=== PATIENT | female | born 1965 | race Caucasian/White ===

== ENCOUNTER → 2017-07-24 18:53 | Outpatient (CLI) | payer MEDICAID, SELFPAY ==
[2017-07-28 14:12] LABS: HPV Reflexed? NOT INDICATED
== END ==
PROVIDERS: Visit Provider Obstetrics & Gynecology
DX: Z12.4 Encounter for screening for malignant neoplasm of cervix (principal)
CPT/HCPCS: 88175; G0145

== ENCOUNTER → 2017-07-27 14:27 | Outpatient (CLI) | payer MEDICAID, SELFPAY ==
[2017-07-27 16:09] LABS: Anion Gap 8 (5-15); BUN 15 mg/dL (7-18); BUN/Creat Ratio 24.4 RATIO (10-20); Chloride 104 mmol/L (98-107); Cholesterol 186 mg/dL (200); Creatinine, Serum 0.62 mg/dL (0.55-1.02); EST Glomerular Filtration Rate 108 mL/min (>60); Est Glom Filt Rate - Afr Amer 130 mL/min (>60); Glucose 91 mg/dL (74-106); High Density Lipoprotein 60 mg/dL; Sodium Level 140 mmol/L (136-145); T4 Total, Thyroxin 14.9 ug/dL (4.8-13.9); Triglycerides 125 mg/dL; Very Low Density Lipoprotein 25 mg/dL (5-40)
== END ==
PROVIDERS: Family Provider Family Medicine; PCP Family Medicine; Visit Provider Family Medicine
DX: I10 Essential (primary) hypertension (principal); E03.9 Hypothyroidism, unspecified
CPT/HCPCS: 36415; 80048; 80061; 84436; 84443

== ENCOUNTER → 2017-09-17 12:58 | Outpatient (CLI) | payer MEDICAID, SELFPAY ==
--- NOTE | 2017-09-17 | EMB_PTH ---
PATIENT: TONEY RIGGINS LOC: [facility] U#:[id number] AGE/SX: 59/F ROOM: RE09/17/[address]: Dr. Azeem Dangelo MD : 1965 BED: DIS: SPEC #: [id number] RECD: 09/17/17 15:03 STATUS: STORMY DINA #: [id number] JACLYN: 09/17/17 00:[address]: Azeme Dangelo DEPT: SURGICAL PATHOLOGY RECD BY: Edinson Dorsey Tissues: Endometrium, NOS Procedures: Surgery Specimen Level IV HEADER OPERATION: Endometrial biopsy PRE-OP DIAGNOSIS: Postmenopausal bleeding TISSUE SUBMITTED: Endometrial biopsy MICROSCOPIC DIAGNOSIS Endometrium, biopsy: Secretory endometrium with glandular and stromal breakdown. AM:laura 09/18/17 MICROSCOPIC DESCRIPTION Slides are reviewed. GROSS DESCRIPTION Received in fixative is one container labeled with the patient's name and designated endometrial biopsy. The specimen consists of multiple irregular and elongated fragments of red-martinez soft tissue that in aggregate measure 2.2 x 2 x 0.2 cm. The specimen is totally submitted in one cassette. / AM:laura 09/17/17 TC:5 CPT: 08185
== END ==
PROVIDERS: Visit Provider Obstetrics & Gynecology
DX: N95.0 Postmenopausal bleeding (principal)
CPT/HCPCS: 88305

== ENCOUNTER → 2017-09-23 14:47 | Outpatient (CLI) | payer MEDICAID, SELFPAY ==
[2017-09-23 16:32] LABS: Follicle Stimulating Hormone 38.7 mIU/mL
== END ==
PROVIDERS: Visit Provider Obstetrics & Gynecology
DX: N93.9 Abnormal uterine and vaginal bleeding, unspecified (principal)
CPT/HCPCS: 83001

== ENCOUNTER → 2018-06-09 13:17 | Outpatient (CLI) | payer MEDICAID, SELFPAY ==
--- NOTE | 2018-06-09 13:23 | CT_ITS ---
STUDY: LOW DOSE CT LUNG CANCER SCREENING REASON FOR EXAM: Female, 53 years old. LUNG SCREEN, TOBACCO USE OFF/ON X 5 YEARS, 1PPD RADIATION DOSAGE (If Supplied By Facility): CTDIvol = ( 4.02 ) mGy, DLP = ( 133.41 ) mGycm TECHNIQUE: No contrast was administered. Low dose technique was utilized (average mAS-38 and kVp 120). 1.25 mm axial source images with a slice interval of 1.25-mm were reconstructed in lung windows. 2.5 mm axial source images with a slice interval of 2.5-mm were reconstructed in lung windows. 5.0 mm axial source images with a slice interval of 5.0-mm were reconstructed in soft tissue windows. Nodule measured using lung windows on PACS and/or independent workstation with automated measurement of minimum and maximum diameter. Nodule measurement reported as average diameter rounded to the nearest whole number. Growth is defined as an increase ins size of greater than 1.5 mm. COMPARISON: None. NODULES: There is an emphysematous bulla at the lateral aspect of the lingula measures 4.5 cm. There is no demonstrated pleural abnormality. Normal heart and pericardium. Normal mediastinum. Normal hilar regions. Normal unenhanced pulmonary arteries. Normal aorta arch and descending thoracic aorta. There are multi-level degenerative changes of the thoracic spine. There is no demonstrated abnormality of the visualized upper abdomen. CT/Low Dose CT Lung Screening IMPRESSION: Lung-RADS category 2. Benign findings. Recommendation: Routine screening CT scan in one year. IMPORTANT NOTES FOR USE: ACR Lung-RADS Version 1.0 Assessment Categories Release Date: September 19, 2013 Category: Coded 0-4 bases on nodule(s) with highest degree of suspicion. Negative screen is defined as categories 1 and 2; a positive screen is defined as categories 3 and 4. Category 3 and 4A nodules that are unchanged on interval CT should be coded as category 2, and individuals returned to screening in 12 months. Category 4X: Category 3 or 4 nodules with additional imaging findings that increase the suspicion of lung cancer, such as spiculation, GGN that doubles in size in 1 year, enlarged lymph notes, etc. Category Modifiers: S (significant finding unrelated to lung cancer) and C (prior history of treated lung cancer) may be added to the 0-4 Lung-RADS Electronically Signed: Dallas Meade MD at 3:40 EST Tel , Service support ,
--- OUTSIDE RECORDS SUMMARY | 2018-08-14 09:50 | XMS RPT_ITS ---
:1965 Author Organization OH[facility] Care Team Providers Name Role Phone Luciano Cavazos Attending Unavailable Luciano Cavazos Referring Unavailable Reny Damian Primary Care Unavailable Azeem Dangelo Attending Unavailable Azeem Dangelo Referring Unavailable Jolliff, Reny Attending Unavailable Jolliff, Reny Primary Care Unavailable Azeem Dangelo Attending Unavailable Azeem Dangeol Attending Unavailable YAW RICHARDSON DO Attending Unavailable PHYSICIAN, NOT RECORDED Primary Care Unavailable Emelina Vargas Attending Unavailable Gabo Diaz Attending Unavailable Jolliff, Reny S Primary Care Unavailable Emelina Vargas Attending Unavailable Jolliff, Reny S Primary Care Unavailable Emelina Vargas Attending Unavailable No Family Physician given Primary Care Unavailable Gabo Diaz Attending Unavailable PROBLEMS PROBLEMS DATE TYPE CONDITION / ATTENDING STATUS SOURCE CODE 08/25/2017 Admitting Unknown / Alicia, Active [facility] Medical diagnosis UNK(Unknown) Emelina Ad[facility] Repository 07/25/2017 Unknown Z12.4 - Azeem Dangelo Active Abelardo Encounter for Community screening for Hospital malignant Repository neoplasm of cervix / Z12.4(ICD-10) PROCEDURES PROCEDURES No Procedure Records FoundRESULTS RESULTS WOUND Observed: 06/14/2018 Status: F Source: [place] CULTURE/STAIN 11:40 AM [facility] REPOSITORY Sp. Request/Comment: - Swab Smear Result - Rare Gram positive cocci --> ABNORMAL ALERT Rare Polymorphonuclear leukocytes Culture Result - Moderate Staphylococcus aureus --> ABNORMAL ALERT ORGANISM: Staphylococcus aureus METHOD: Minimum inhibitory concentration(Vitek) Antibiotic Interp ROSLYN Status Erythromycin RESISTANT >=8 F Clindamycin SUSCEPTIBLE 0.25 F Testing for inducible clindamycin resistance was performed. Tetracycline SUSCEPTIBLE <=1 F Vancomycin SUSCEPTIBLE 1 F Oxacillin SUSCEPTIBLE 0.5 F Oxacillin susceptible staphylococci are susceptible to other penicillinase stable penicillins, beta lactam/beta lactamase inhibitor combinations, anti staphyloccal cephems, and carbapenems. Trimeth sulfameth SUSCEPTIBLE <=10 F Gentamicin SUSCEPTIBLE <=0.5 F Rifampin SUSCEPTIBLE <=0.5 F Rifampin should not be used alone for antimicrobial therapy. Doxycycline SUSCEPTIBLE <=0.5 F Performed By: #### WCUL #### [facility] [address] [place], [place] [address] PROGRESS Observed: 06/14/2018 Status: COMPLETED Source: [place] 11:20 AM [facility] REPOSITORY HNO ID: [id number] Author: Katarina Coronado) Jorge Service: (none) Author Type: Nurse Practitioner Type: Progress Notes Filed: 06/14/2018 11:38 AM Note Text: Subjective The history is provided by the patient. No foreign language professor was used. JEREMY Riggins is a 53 year old female who presents today for CC of rash The patients reports no new exposures, no recent contact with unusual or new material, no recent change in detergents, soap, or shampoo and no other family members with the same rash. The rash is discribed as Erythema, pustules Past treatments No Does the patient have a personal history of: Seasonal allergies: no Recent travel: no Recent infections: no Beginning a new medication: no Symptoms are triggered by: nothing Other symtoms include: none BP 140/74 Pulse 86 Temp 36.9 ?C (98.5 ?F) (Tympanic) Resp 16 Wt 111.2 kg (245 lb 3.2 oz) BMI 51.25 kg/m? Social History Marital status: Single Spouse name: Years of education: Number of children: Social History Main Topics Smoking status: Former Smoker Packs/day: 0.00 Years: 0.00 Smokeless tobacco: Never Used No past medical history on file. I have confirmed and edited as necessary, the [facility] Review of Systems Constitutional: Negative for chills and fever. Musculoskeletal: Negative for myalgias. Skin: Positive for rash. Negative for itching. Objective Physical Exam Constitutional: She is oriented to person, place, and time and well-developed, well-nourished, and in no distress. Neurological: She is alert and oriented to person, place, and time. Skin: Skin is warm and dry. Rash noted. Rash is papular and pustular. There is erythema. Psychiatric: Affect normal. Nursing note and vitals reviewed. ASSESSMENT/PLAN: 1. Rash - ICD9: 782.1, ICD10: R21 Appears to be infected, possible staph, impetigo, MRSA - Keep the area clean and dry -Clean with soap and water . Apply mupirocin ointment 2 - 3 times a day. -Tylenol or Ibuprofen for discomfort -Observe area for signs of infection: redness, warmth, foul odor, drainage or increase in discomfort. Call you primary care physician if this occurs. -Call your primary care physician's office for a follow up appointment. Wound culture done, will notify of findings. - MUPIROCIN 2 % TOPICAL OINTMENT Diagnosis and treatment plan were discussed and questions were answered to the patient's satisfaction. Pt acknowledged understanding of concepts and follow up plan. Specific signs and symptoms that would indicate the need for higher level of care were discussed in detail warranting prompt ER evaluation. Diagnosis and treatment plan were discussed and questions were answered to the patient's satisfaction. Pt acknowledged understanding of concepts and follow up plan. Specific signs and symptoms that would indicate the need for higher level of care were discussed in detail warranting prompt ER evaluation. Katarina Patel APRN.CNP CNOV Observed: 06/14/2018 Status: COMPLETED Source: [place] 11:15 AM [facility] REPOSITORY Office Visit (WSTR) DOTTIE RIGGINS ([id number]) 1965 F Date Time Provider Department 06/14/18 11:15 AM KATARINA PATEL (BASIL) [facility] During your visit today, we recorded the following information about you: Temperature Pulse Respiration Blood pressure 98.5 degrees 86/minute 16/minute 140/74 Weight 111.2 kg Katarina Patel APRN.CNP 06/14/2018 11:38 AM Signed Subjective The history is provided by the patient. No foreign language professor was used. JEREMY Riggins is a 53 year old female who presents today for CC of rash The patients reports no new exposures, no recent contact with unusual or new material, no recent change in detergents, soap, or shampoo and no other family members with the same rash. The rash is discribed as Erythema, pustules Past treatments No Does the patient have a personal history of: Seasonal allergies: no Recent travel: no Recent infections: no Beginning a new medication: no Symptoms are triggered by: nothing Other symtoms include: none BP 140/74 Pulse 86 Temp 36.9 ?C (98.5 ?F) (Tympanic) Resp 16 Wt 111.2 kg (245 lb 3.2 oz) BMI 51.25 kg/m? Social History Marital status: Single Spouse name: Years of education: Number of children: Social History Main Topics Smoking status: Former Smoker Packs/day: 0.00 Years: 0.00 Smokeless tobacco: Never Used No past medical history on file. I have confirmed and edited as necessary, the [facility] Review of Systems Constitutional: Negative for chills and fever. Musculoskeletal: Negative for myalgias. Skin: Positive for rash. Negative for itching. Objective Physical Exam Constitutional: She is oriented to person, place, and time and well-developed, well-nourished, and in no distress. Neurological: She is alert and oriented to person, place, and time. Skin: Skin is warm and dry. Rash noted. Rash is papular and pustular. There is erythema. Psychiatric: Affect normal. Nursing note and vitals reviewed. ASSESSMENT/PLAN: 1. Rash - ICD9: 782.1, ICD10: R21 Appears to be infected, possible staph, impetigo, MRSA - Keep the area clean and dry -Clean with soap and water . Apply mupirocin ointment 2 - 3 times a day. -Tylenol or Ibuprofen for discomfort -Observe area for signs of infection: redness, warmth, foul odor, drainage or increase in discomfort. Call you primary care physician if this occurs. -Call your primary care physician's office for a follow up appointment. Wound culture done, will notify of findings. - MUPIROCIN 2 % TOPICAL OINTMENT Diagnosis and treatment plan were discussed and questions were answered to the patient's satisfaction. Pt acknowledged understanding of concepts and follow up plan. Specific signs and symptoms that would indicate the need for higher level of care were discussed in detail warranting prompt ER evaluation. Diagnosis and treatment plan were discussed and questions were answered to the patient's satisfaction. Pt acknowledged understanding of concepts and follow up plan. Specific signs and symptoms that would indicate the need for higher level of care were discussed in detail warranting prompt ER evaluation. Katarina Patel APRN.BASIL Patel APRN.BASIL 06/14/2018 11:29 AM Signed ASSESSMENT/PLAN: 1. Rash - ICD9: 782.1, ICD10: R21 Appears to be infected - Keep the area clean and dry -Clean with soap and water . Apply mupirocin ointment 2 - 3 times a day. -Tylenol or Ibuprofen for discomfort -Observe area for signs of infection: redness, warmth, foul odor, drainage or increase in discomfort. Call you primary care physician if this occurs. -Call your primary care physician's office for a follow up appointment. - MUPIROCIN 2 % TOPICAL OINTMENT Referring Provider: SELF [200] Allergies As of Date: 06/14/2018 (No Known Allergies) Date Reviewed: 06/14/2018 Reviewed by: Katarina (Cancer Registry CoordinatorJah Patel - Fully Assessed Reason for Visit: rash on right forearm [Other] Cmt: x several days Primary Visit Diagnosis:Rash [R21] Order(s):mupirocin (BACTROBAN) 2 % ointmentApply 1 application to affected area three times daily. Location: right armDisp: 30 gRfl: 0 WOUND CULTURE AND GRAM STAIN [SQWCUL] Order #: [id number] Prescriptions as of 06/14/2018 Sig: LEVOTHYROXINE 175 MCG TABLET Take 175 mcg by mouth once da* LISINOPRIL 10 MG TABLET Take 10 mg by mouth once jennifer* DEXTROAMPHETAMINE-AMPHETAMINE* Take 20 mg by mouth once jennifer* DULOXETINE 60 MG CAPSULE,LESLEE* Take 60 mg by mouth once jennifer* DULOXETINE 30 MG CAPSULE,LESLEE* Take 30 mg by mouth once jennifer* OMEPRAZOLE 20 MG CAPSULE,LESLEE* Take 20 mg by mouth once jennifer* DIAZEPAM 5 MG TABLET Take 5 mg by mouth as needed. OXYCODONE-ACETAMINOPHEN 5 MG-* Take 1 tablet by mouth as nee* MUPIROCIN 2 % TOPICAL OINTMENT Apply 1 application to affect* CARISOPRODOL 350 MG TABLET Take 350 mg by mouth once gloria* Problem List As Of Date: 06/14/2018 (None) Other instructions from your clinician: ASSESSMENT/PLAN: 1. Rash - ICD9: 782.1, ICD10: R21 Appears to be infected - Keep the area clean and dry -Clean with soap and water . Apply mupirocin ointment 2 - 3 times a day. -Tylenol or Ibuprofen for discomfort -Observe area for signs of infection: redness, warmth, foul odor, drainage or increase in discomfort. Call you primary care physician if this occurs. -Call your primary care physician's office for a follow up appointment. - MUPIROCIN 2 % TOPICAL OINTMENT Prescriptions ordered this encounter Disp Refills Start End MUPIROCIN 2 % TOPICAL OINTMENT 30 g 0 06/14/2018 Route: TOPICAL Sig: Apply 1 application to affected area three times daily. Location: right arm Encounter Status:Closed by KATARINA PATEL CNP on 06/14/[address] LUNG Observed: 06/09/2018 Status: F Source: [place] SCREENING 1:23 PM [facility] REPOSITORY [facility] Imaging Services [address] [place] [address] Lung Screening MR#: [id number] Acct: [id number] Name: DOTTIE RIGGINS Rep #: [id number] : 1965 F 53 From: Dallas Meade MD PCP: Reny Damian MD Status: REG CLI Study: Low Dose CT Lung Screening Date of Exam: 06/09/18 Exam# [id number] Ordering Dr: Luciano Cavazos MD STUDY: LOW DOSE CT LUNG CANCER SCREENING REASON FOR EXAM: Female, 53 years old. LUNG SCREEN, TOBACCO USE OFF/ON X 5 YEARS, 1PPD RADIATION DOSAGE (If Supplied By Facility): CTDIvol = ( 4.02 ) mGy, DLP = ( 133.41 ) mGycm TECHNIQUE: No contrast was administered. Low dose technique was utilized (average mAS-38 and kVp 120). 1.25 mm axial source images with a slice interval of 1.25- mm were reconstructed in lung windows. 2.5 mm axial source images with a slice interval of 2.5-mm were reconstructed in lung windows. 5.0 mm axial source images with a slice interval of 5.0-mm were reconstructed in soft tissue windows. Nodule measured using lung windows on PACS and/or independent workstation with automated measurement of minimum and maximum diameter. Nodule measurement reported as average diameter rounded to the nearest whole number. Growth is defined as an increase ins size of greater than 1.5 mm. COMPARISON: None. NODULES: There is an emphysematous bulla at the lateral aspect of the lingula measures 4.5 cm. There is no demonstrated pleural abnormality. Normal heart and pericardium. Normal mediastinum. Normal hilar regions. Normal unenhanced pulmonary arteries. Normal aorta arch and descending thoracic aorta. There are multi-level degenerative changes of the thoracic spine. There is no demonstrated abnormality of the visualized upper abdomen. CT/Low Dose CT Lung Screening IMPRESSION: Lung-RADS category 2. Benign findings. Recommendation: Routine screening CT scan in one year. IMPORTANT NOTES FOR USE: ACR Lung-RADS Version 1.0 Assessment Categories Release Date: September 19, 2013 Category: Coded 0-4 bases on nodule(s) with highest degree of suspicion. Negative screen is defined as categories 1 and 2; a positive screen is defined as categories 3 and 4. Category 3 and 4A nodules that are unchanged on interval CT should be coded as category 2, and individuals returned to screening in 12 months. Category 4X: Category 3 or 4 nodules with additional imaging findings that increase the suspicion of lung cancer, such as spiculation, GGN that doubles in size in 1 year, enlarged lymph notes, etc. Category Modifiers: S (significant finding unrelated to lung cancer) and C (prior history of treated lung cancer) may be added to the 0-4 Lung-RADS Electronically Signed: Dallas Meade MD at 3:40 EST Tel , Service support , CC: Reny Damian MD; Luciano Cavazos MD Rod Drawer: Signed TOXASSURE COMPR Collected: 04/26/2018 Status: F Source: [facility] 6:01 AM [facility] REPOSITORY TYPE CODE TESTS RESULT OUT OF RANGE REFERENCE UNITS LAB L600.41786 () Normal TOXASSURE COMPR FINAL Result Comment: TOXASSURE COMP DRUG ANALYSIS,UR 6-Acetylmorphine,ToxAssure Add CREATININE,URINE Test Result Flag Units Drug Present Desmethyldiazepam 232 ng/mg creat Oxazepam 261 ng/mg creat Temazepam 295 ng/mg creat Desmethyldiazepam, oxazepam, and temazepam are benzodiazepine drugs, but may also be present as common metabolites of other benzodiazepine drugs, including diazepam. Oxycodone 2695 ng/mg creat Oxymorphone 342 ng/mg creat Noroxycodone 1144 ng/mg creat Sources of oxycodone include scheduled prescription medications. Oxymorphone and noroxycodone are expected metabolites of oxycodone. Oxymorphone is also available as a scheduled prescription medication. Duloxetine PRESENT Acetaminophen PRESENT Ibuprofen PRESENT Test Result Flag Units Ref Range Creatinine 59 mg/dL >=20 Declared Medications: Medication list was not provided. For clinical consultation, please call . Performed By: #### L600.17091, L600.56346 #### [facility] [address] [place] [address] # [phone] 6-ACETYLMORPHIN Collected: 04/26/2018 Status: F Source: [facility] 6:01 AM [facility] REPOSITORY TYPE CODE TESTS RESULT OUT OF RANGE REFERENCE UNITS LAB L600.38073 () 6-FERNANDO Normal TOXASSURE NEGATIVE Performed By: #### L600.61756, L600.98615 #### [facility] [address] [place] [address] # [phone] XR HAND MINIMUM 3 Observed: 11/28/2017 Status: F Source: [place] VIEWS RIGHT 10:10 PM [facility] REPOSITORY ORIGINAL XR HAND MINIMUM 3 VIEWS RIGHT CLINICAL STATEMENT: Pain medially in the area of the 4th and 5th metacarpals, fall. COMPARISON: None FINDINGS: No acute fracture or dislocation is identified. The joint spaces are maintained. There is no radiopaque foreign body. IMPRESSION: No acute fracture or dislocation. I have personally reviewed the images of this examination and agree with the resident's findings and interpretation. Interpreted By: Tam Miller MD Preliminary Report By: Karen Elizabeth MD Electronically Signed By: Tam Miller MD Dictated Date: 11/28/2017 10:14:58 PM Prelim Date: 11/28/2017 10:17:29 PM Sign Date: 11/28/2017 10:49:00 PM FOLLICLE STIMULATING Collected: 09/23/2017 Status: F Source: [place] 12:40 PM [facility] REPOSITORY TYPE CODE TESTS RESULT OUT OF RANGE REFERENCE UNITS LAB L3100.5125 mIU/mL Normal FSH 38.7 Result Comment: NORMAL REFERENCE RANGES FEMALE FOLLICULAR 2.3 - 12.6 mIU/mL MID-CYCLE PEAK 5.2 - 17.5 mIU/mL LUTEAL 1.7 - 12.9 mIU/mL POST-MENOPAUSAL ON MHT 5.9 - 72.8 mIU/mL NOT ON MHT 12.7 - 132.2 mlU/mL MALE 0.7 - 10.8 mIU/mL NEW TEST METHOD AND REFERENCE RANGES OCTOBER 13, 2011 Performed By: #### L3100.5125 #### [facility] [address] [place], [address] ENDOMETRIAL BX/CURETTINGS Observed: 09/17/2017 Status: F Source: [place] 12:00 AM [facility] REPOSITORY Patient: DOTTIE RIGGINS : 1965 (52/F) Acct Num: [id number] Phys: Antolin JARAMILLO,[facility] Unit Num: [id number] Loc: LABSPEC Specimen: [id number] Received: 09/17/17 - 1503 Spec Type: ENDOM BX/C TISSUES TISSUES: Endometrium, NOS GROSS DESCRIPTION Received in fixative is one container labeled with the patient's name and designated endometrial biopsy. The specimen consists of multiple irregular and elongated fragments of red-martinez soft tissue that in aggregate measure 2.2 x 2 x 0.2 cm. The specimen is totally submitted in one cassette. / AM: 09/17/17 TC:5 CPT: 74925 HEADER OPERATION: Endometrial biopsy PRE-OP DIAGNOSIS: Postmenopausal bleeding TISSUE SUBMITTED: Endometrial biopsy MICROSCOPIC DESCRIPTION Slides are reviewed. MICROSCOPIC DIAGNOSIS Endometrium, biopsy: Secretory endometrium with glandular and stromal breakdown. AM: 09/18/17 Signed Jacek Feldman 09/18/17 <signature on file> Performed By: #### PEMB #### [facility] [address] [place], [place], [address] PROGRESS Observed: 07/30/2017 Status: COMPLETED Source: [place] 6:36 PM [facility] REPOSITORY HNO ID: [id number] Author: Lizet (Basil) Luis Service: (none) Author Type: Nurse Practitioner Type: Progress Notes Filed: 07/30/2017 7:16 PM Note Text: Subjective HPI Patient is a 52 year old female here today for a month long history of nasal congestion and sinus pressure. States she was feeling better but now feels worse. OTC medications have been taken with little relief. Nothing makes it better or worse. No other concerns at this time. Review of Systems Constitutional: Positive for chills and malaise/fatigue. Negative for fever. HENT: Positive for congestion, ear pain and sore throat. Respiratory: Positive for cough. Negative for sputum production, shortness of breath and wheezing. Cardiovascular: Negative. Gastrointestinal: Negative for nausea and vomiting. Musculoskeletal: Negative for myalgias. Neurological: Positive for headaches (sinus pressure). Endo/Heme/Allergies: Negative for environmental allergies. All other systems reviewed and are negative. No past medical history on file. No past surgical history on file. ALLERGIES Review of patient's allergies indicates no known allergies. MEDICATIONS levothyroxine (SYNTHROID) 175 mcg tablet Take 175 mcg by mouth once daily. lisinopril (ZESTRIL, PRINIVIL) 10 mg tablet Take 10 mg by mouth once daily. dextroamphetamine-amphetamine (ADDERALL) 20 mg tablet Take 20 mg by mouth once daily. DULoxetine (CYMBALTA) 60 mg capsule Take 60 mg by mouth once daily. DULoxetine (CYMBALTA) 30 mg capsule Take 30 mg by mouth once daily. omeprazole (PRILOSEC) 20 mg capsule Take 20 mg by mouth once daily. diazepam (VALIUM) 5 mg tablet Take 5 mg by mouth as needed. oxyCODONE-acetaminophen (PERCOCET) 5-325 mg tablet Take 1 tablet by mouth as needed. carisoprodol (SOMA) 350 mg tablet Take 350 mg by mouth once daily. No family history on file. Social History Substance Use Topics - Smoking status: Former Smoker - Smokeless tobacco: Never Used - Alcohol use Not on file BP 140/70 Pulse 72 Temp 37 ?C (98.6 ?F) (Tympanic) Resp 16 Wt 110 kg (242 lb 9.6 oz) BMI 50.7 kg/m2 Objective Physical Exam Constitutional: She is oriented to person, place, and time and well-developed, well-nourished, and in no distress. Vital signs are normal. No distress. Mildly ill. HENT: Head: Normocephalic and atraumatic. Right Ear: Tympanic membrane, external ear and ear canal normal. Left Ear: Tympanic membrane, external ear and ear canal normal. Nose: Mucosal edema and rhinorrhea present. Right sinus exhibits maxillary sinus tenderness and frontal sinus tenderness. Left sinus exhibits maxillary sinus tenderness and frontal sinus tenderness. Mouth/Throat: Uvula is midline, oropharynx is clear and moist and mucous membranes are normal. No oropharyngeal exudate, posterior oropharyngeal edema or posterior oropharyngeal erythema. Neck: Neck supple. Cardiovascular: Normal rate, regular rhythm and normal heart sounds. Pulmonary/Chest: Effort normal and breath sounds normal. She has no wheezes. She has no rales. Lymphadenopathy: Head (right side): No submental, no submandibular and no tonsillar adenopathy present. Head (left side): No submental, no submandibular and no tonsillar adenopathy present. She has no cervical adenopathy. Submandibular fullness. Neurological: She is alert and oriented to person, place, and time. Skin: Skin is warm and dry. Nursing note and vitals reviewed. ASSESSMENT/PLAN: 1. Acute sinusitis, recurrence not specified, unspecified location - ICD9: 461.9, ICD10: J01.90 - Will begin treatment with as per antibiotic as written, see orders - Diflucan given for antibiotic induced yeast infection - The patient should also be given OTC decongestants prn, OTC cough and cold meds as needed and warm salt water gargles, throat lozenges and/or OTC throat spray as needed for the first 5-7 days of treatment. - Supportive care with plenty of fluids, rest, and analgesia prn. - Follow up in 3-5 days if symptoms persist or worsen. - AMOXICILLIN 875 MG-POTASSIUM CLAVULANATE 125 MG TABLET - FLUCONAZOLE 150 MG TABLET Prescription instructions reviewed with patient as applicable. Patient advised if symptoms do not improve or if symptoms worsen sooner, to contact their primary care physician. Potential red flag symptoms discussed with the patient. Reviewed appropriate action plan to take if red flag symptoms occur. Patient agreeable to treatment plan. Lizet Smith CNP CNOV Observed: 07/30/2017 Status: COMPLETED Source: [place] 6:30 PM [facility] REPOSITORY Office Visit (WSTR) FRESHDOTTIE LINARES ([id number]) 1965 F Date Time Provider Department 07/30/17 6:30 PM LIZET SMITH (BASIL) [facility] During your visit today, we recorded the following information about you: Temperature Pulse Respiration Blood pressure 98.6 degrees 72/minute 16/minute 140/70 Weight 110 kg Lizet Smith CNP 07/30/2017 7:16 PM Signed Subjective HPI Patient is a 52 year old female here today for a month long history of nasal congestion and sinus pressure. States she was feeling better but now feels worse. OTC medications have been taken with little relief. Nothing makes it better or worse. No other concerns at this time. Review of Systems Constitutional: Positive for chills and malaise/fatigue. Negative for fever. HENT: Positive for congestion, ear pain and sore throat. Respiratory: Positive for cough. Negative for sputum production, shortness of breath and wheezing. Cardiovascular: Negative. Gastrointestinal: Negative for nausea and vomiting. Musculoskeletal: Negative for myalgias. Neurological: Positive for headaches (sinus pressure). Endo/Heme/Allergies: Negative for environmental allergies. All other systems reviewed and are negative. No past medical history on file. No past surgical history on file. ALLERGIES Review of patient's allergies indicates no known allergies. MEDICATIONS levothyroxine (SYNTHROID) 175 mcg tablet Take 175 mcg by mouth once daily. lisinopril (ZESTRIL, PRINIVIL) 10 mg tablet Take 10 mg by mouth once daily. dextroamphetamine-amphetamine (ADDERALL) 20 mg tablet Take 20 mg by mouth once daily. DULoxetine (CYMBALTA) 60 mg capsule Take 60 mg by mouth once daily. DULoxetine (CYMBALTA) 30 mg capsule Take 30 mg by mouth once daily. omeprazole (PRILOSEC) 20 mg capsule Take 20 mg by mouth once daily. diazepam (VALIUM) 5 mg tablet Take 5 mg by mouth as needed. oxyCODONE-acetaminophen (PERCOCET) 5-325 mg tablet Take 1 tablet by mouth as needed. carisoprodol (SOMA) 350 mg tablet Take 350 mg by mouth once daily. No family history on file. Social History Substance Use Topics - Smoking status: Former Smoker - Smokeless tobacco: Never Used - Alcohol use Not on file BP 140/70 Pulse 72 Temp 37 ?C (98.6 ?F) (Tympanic) Resp 16 Wt 110 kg (242 lb 9.6 oz) BMI 50.7 kg/m2 Objective Physical Exam Constitutional: She is oriented to person, place, and time and well-developed, well-nourished, and in no distress. Vital signs are normal. No distress. Mildly ill. HENT: Head: Normocephalic and atraumatic. Right Ear: Tympanic membrane, external ear and ear canal normal. Left Ear: Tympanic membrane, external ear and ear canal normal. Nose: Mucosal edema and rhinorrhea present. Right sinus exhibits maxillary sinus tenderness and frontal sinus tenderness. Left sinus exhibits maxillary sinus tenderness and frontal sinus tenderness. Mouth/Throat: Uvula is midline, oropharynx is clear and moist and mucous membranes are normal. No oropharyngeal exudate, posterior oropharyngeal edema or posterior oropharyngeal erythema. Neck: Neck supple. Cardiovascular: Normal rate, regular rhythm and normal heart sounds. Pulmonary/Chest: Effort normal and breath sounds normal. She has no wheezes. She has no rales. Lymphadenopathy: Head (right side): No submental, no submandibular and no tonsillar adenopathy present. Head (left side): No submental, no submandibular and no tonsillar adenopathy present. She has no cervical adenopathy. Submandibular fullness. Neurological: She is alert and oriented to person, place, and time. Skin: Skin is warm and dry. Nursing note and vitals reviewed. ASSESSMENT/PLAN: 1. Acute sinusitis, recurrence not specified, unspecified location - ICD9: 461.9, ICD10: J01.90 - Will begin treatment with as per antibiotic as written, see orders - Diflucan given for antibiotic induced yeast infection - The patient should also be given OTC decongestants prn, OTC cough and cold meds as needed and warm salt water gargles, throat lozenges and/or OTC throat spray as needed for the first 5-7 days of treatment. - Supportive care with plenty of fluids, rest, and analgesia prn. - Follow up in 3-5 days if symptoms persist or worsen. - AMOXICILLIN 875 MG-POTASSIUM CLAVULANATE 125 MG TABLET - FLUCONAZOLE 150 MG TABLET Prescription instructions reviewed with patient as applicable. Patient advised if symptoms do not improve or if symptoms worsen sooner, to contact their primary care physician. Potential red flag symptoms discussed with the patient. Reviewed appropriate action plan to take if red flag symptoms occur. Patient agreeable to treatment plan. BASIL Thomas CNP 07/30/2017 6:41 PM Signed Acute Sinusitis Each of us has four paired cavities (spaces) in our head that are connected to the nose by narrow channels. These cavities, known as sinuses, produce thin mucus that drains out of the channels of the nose. This drainage helps keep the nose clean and free of particles and bacteria. Normally, sinuses are filled with air. But when sinuses become blocked and filled with fluid, bacteria can grow and cause an infection (bacterial sinusitis). Conditions that cause sinus blockage include: ? the common cold ? allergic rhinitis (swelling of the lining of the nose due to allergies) ? nasal polyps (small growths in the lining of the nose), or ? a deviated septum (the wall between the left and right nostril is crooked). Allergies, such as hay fever, can also cause swelling and poor drainage of the sinuses. One confusing factor to consider is that many people with ?sinus headaches? are actually suffering from migraines. In fact, in large clinical studies, up to 90% of people who reported sinus headaches were diagnosed with migraines instead. Migraines can cause headaches in combination with facial pressure over the sinuses, a runny nose, and nasal congestion. If you have symptoms that involve the sinuses, it may be difficult to tell if you have sinusitis, a cold, nasal allergy, or even a migraine. This article will describe the symptoms, diagnosis, and treatment of sinusitis, and how to tell the difference between sinusitis, cold, migraines, and nasal allergy. What is sinusitis? Sinusitis is an inflammation, or swelling, of the tissue lining the sinuses. There are two types of sinusitis: ? Acute bacterial sinusitis: a sudden onset of cold symptoms such as runny nose, stuffy nose, and facial pain that does not go away after 10 days, or symptoms that seem to begin improving but return worse than the initial symptoms. It responds well to antibiotics and decongestants. ? Chronic sinusitis: a condition defined by nasal congestion, drainage, facial pain/pressure, and decreased sense of smell for at least 12 weeks. Who gets sinusitis? Every year, approximately 1 billion Americans have at least one episode of viral sinusitis. About 37 million will develop a bacterial sinusitis. People who have the following conditions have a higher risk of sinusitis: ? Nasal mucus membrane swelling, as from a common cold or allergies ? Blockage of drainage ducts, leading to trapping of mucus ? Structure differences that narrow the drainage ducts ? Conditions that result in an increased risk of infection ? Polyps (growths) In children, common factors in the environment that contribute to sinusitis include allergies, illness from other children at day care or school, and smoke in the environment. In adults, the contributing factors are most frequently viral infections, allergies, and smoking. What are the signs and symptoms of acute sinusitis? The primary symptoms of acute sinusitis include: ? Facial pain/pressure/tenderness ? Nasal stuffiness ? Nasal discharge (thick yellow or green discharge from nose), especially if it is long-lasting. These also may be present with viral illness. ? Loss of smell and taste ? Cough/congestion Additional symptoms may include: ? Fever of 102? or higher ? Ear pain ? Headache ? Bad breath ? Fatigue ? Ache in upper jaw and teeth How is sinusitis diagnosed? To diagnose sinusitis, your doctor will discuss your symptoms and examine your nose for swelling and drainage. Your personal history is most important in diagnosing sinusitis. A physical exam of the ears, nose, and throat is performed to look for signs of obstruction (blockage) or infection. Some patients may have conditions that may need to be referred to a specialist, such as an ear, nose, and throat (ENT) physician. How is sinusitis treated? Acute sinusitis. If you have a simple sinusitis infection, your health care provider may recommend treatment with wkgu-mss-[id number] medications for cold and allergy, nasal saline irrigation, and drinking fluids (as most sinusitis is viral). Use of prescription intranasal steroid sprays might be added to help control symptoms. However, non-prescription drops or sprays should not be used beyond 5 days -- or they may actually increase congestion. If symptoms do not improve after at least 10 days, if the symptoms seem to be getting worse, or if medications for cold or allergy do not improve symptoms, a bacterial infection may be causing the sinusitis. In this case, antibiotics are given for 7 days in adults and 10 days in children. Antibiotics should improve symptoms within 48 hours. Chronic sinusitis. Treating chronic sinusitis begins with controlling the underlying condition, which is most often allergies. Standard treatments include intranasal steroid sprays, topical antihistamine sprays, or antihistamine pills, and leukotriene antagonists such as montelukast. Often you will be encouraged to rinse the nose with saline irrigations. Sometimes medications may be added to these irrigations. If sinusitis is not controlled, the next step is a visit with an Ear, Nose and Throat Specialist. Will I need to make lifestyle changes? If you have indoor allergies, avoiding triggers -- such as animal dander and dust mites ? is recommended in addition to medications. Smoking is never recommended, but if you do smoke, strongly consider a program to help you stop smoking, as this may be the main reason you have sinus infections. No special diet is required, but drinking extra fluids helps to thin nasal secretions. What are the symptoms of the common cold? An upper respiratory infection (the common cold) is usually caused by a virus that infects the nose and throat. Most upper respiratory infections are not bacterial and do not respond to antibiotics. A cold may cause swelling in the sinuses, preventing the outflow of mucus. Cold symptoms include nasal congestion, runny nose, post-nasal drip (svjl-pr-yqsu release of nasal fluid into the back of the throat), headache, achiness, and fatigue. Cough and fever may also go along with these symptoms. Cold symptoms usually build, peak, and slowly disappear. No treatment is necessary for a cold, but some medications can ease symptoms. For example, decongestants may decrease drainage and open the nasal passages. Analgesics (pain relievers) may help with fever and headache. Cough medication may help, as well. Colds will typically last from a few days to about a week. What is the harm in getting an antibiotic for a common cold? Viral infections like the common cold are not cured by antibiotics. Taking an antibiotic for a viral infection unnecessarily puts you at risk for side effects related to the antibiotic. In addition, the overuse of antibiotics leads to antibiotic resistance, which may make future infections more difficult to treat. Finally, the use of inappropriate medication increases health care costs unnecessarily. What are the symptoms of nasal allergy? Symptoms of nasal allergy include: ? Sneezing ? Itchy nose ? Clear, watery nasal discharge ? Nasal blockage ? Feeling fatigued How is nasal allergy treated? Usually medications are prescribed to relieve symptoms. These may include antihistamines, with or without decongestants, or steroid nasal sprays. Other nasal sprays, which deliver antihistamines or cromolyn sodium, are sometimes helpful. If allergy symptoms are chronic (long-term), allergy testing and allergy shots (immunotherapy) may be helpful. How can I tell if I have a sinus infection, cold, or nasal allergy? Although the symptoms of sinusitis and nasal allergy may occur with a common cold, in general, cold-related symptoms disappear within 1 week. The point at which a normal cold ends and a sinus condition begins is not always easy to know. If you are fighting off a cold and develop symptoms of a sinus infection or nasal allergy, see your health care provider. You will be asked to describe your symptoms and medical history. ? How do I know if my sinus condition requires the care of an ear, nose, and throat specialist? Most routine sinus conditions are easily cared for by primary care physicians. If, however, you are bothered by ongoing abnormal symptoms, recurring infections, or have abnormal X-ray findings or complications, a referral to a specialist is appropriate. References ? Arie Trinh. et al., IDSA Clinical Practice Guideline for Acute Bacterial Rhinosinusitis in Children and Adults. Clinical Infectious Diseases; 2012;54(8):4151-6696. ? Luís Craven, Sinusitis: Allergies, antibiotics, aspirin, asthma. [facility] Journal of Medicine 2006; 73(7): 671-678 ? National [place] of Allergy and Infectious Diseases. Sinusitis (Sinus Infection) Accessed 04/03/2015. ? [employer], and Immun[employer]. Sinusitis Accessed 04/03/2015. ? [employer], [employer] ANDamp; Immunology. Sinus Information Accessed 04/03/2015. ? Baldo Trujillo., Prevalence of migraine in patients with a history of self-reported or physician-diagnosed ANDquot;sinusANDquot; headache. [employer], 2003. 164(16):1769-72. ? Copyright 7902-6014 [facility]. All rights reserved. Referring Provider: SELF [200] Allergies As of Date: 07/30/2017 (No Known Allergies) Date Reviewed: 07/30/2017 Reviewed by: Lizet Coronado) Luis - Fully Assessed Reason for Visit: sinus pressure and pain [Other] Cmt: x 1 month-she thinks she has a sinus infection Primary Visit Diagnosis:Acute sinusitis, recurrence not specified, unspecified location [J01.90] Order(s):amoxicillin-clavulanic acid (AUGMENTIN) 875-125 mg per tabletTake 1 tablet by mouth twice daily for 10 days.Disp: 20 tabletRfl: 0 fluconazole (DIFLUCAN) 150 mg tabletTake 1 tablet by mouth once daily for 1 day.Disp: 1 tabletRfl: 0 Prescriptions as of 07/30/2017 Sig: LEVOTHYROXINE 175 MCG TABLET Take 175 mcg by mouth once da* LISINOPRIL 10 MG TABLET Take 10 mg by mouth once jennifer* DEXTROAMPHETAMINE-AMPHETAMINE* Take 20 mg by mouth once jennifer* DULOXETINE 60 MG CAPSULE,LESLEE* Take 60 mg by mouth once jennifer* DULOXETINE 30 MG CAPSULE,LESLEE* Take 30 mg by mouth once jennifer* OMEPRAZOLE 20 MG CAPSULE,LESLEE* Take 20 mg by mouth once jennifer* DIAZEPAM 5 MG TABLET Take 5 mg by mouth as needed. OXYCODONE-ACETAMINOPHEN 5 MG-* Take 1 tablet by mouth as nee* CARISOPRODOL 350 MG TABLET Take 350 mg by mouth once gloria* AMOXICILLIN 875 MG-POTASSIUM * Take 1 tablet by mouth twice * FLUCONAZOLE 150 MG TABLET Take 1 tablet by mouth once d* Problem List As Of Date: 07/30/2017 (None) Other instructions from your clinician: Acute Sinusitis Each of us has four paired cavities (spaces) in our head that are connected to the nose by narrow channels. These cavities, known as sinuses, produce thin mucus that drains out of the channels of the nose. This drainage helps keep the nose clean and free of particles and bacteria. Normally, sinuses are filled with air. But when sinuses become blocked and filled with fluid, bacteria can grow and cause an infection (bacterial sinusitis). Conditions that cause sinus blockage include: ? the common cold ? allergic rhinitis (swelling of the lining of the nose due to allergies) ? nasal polyps (small growths in the lining of the nose), or ? a deviated septum (the wall between the left and right nostril is crooked). Allergies, such as hay fever, can also cause swelling and poor drainage of the sinuses. One confusing factor to consider is that many people with ?sinus headaches? are actually suffering from migraines. In fact, in large clinical studies, up to 90% of people who reported sinus headaches were diagnosed with migraines instead. Migraines can cause headaches in combination with facial pressure over the sinuses, a runny nose, and nasal congestion. If you have symptoms that involve the sinuses, it may be difficult to tell if you have sinusitis, a cold, nasal allergy, or even a migraine. This article will describe the symptoms, diagnosis, and treatment of sinusitis, and how to tell the difference between sinusitis, cold, migraines, and nasal allergy. What is sinusitis? Sinusitis is an inflammation, or swelling, of the tissue lining the sinuses. There are two types of sinusitis: ? Acute bacterial sinusitis: a sudden onset of cold symptoms such as runny nose, stuffy nose, and facial pain that does not go away after 10 days, or symptoms that seem to begin improving but return worse than the initial symptoms. It responds well to antibiotics and decongestants. ? Chronic sinusitis: a condition defined by nasal congestion, drainage, facial pain/pressure, and decreased sense of smell for at least 12 weeks. Who gets sinusitis? Every year, approximately 1 billion Americans have at least one episode of viral sinusitis. About 37 million will develop a bacterial sinusitis. People who have the following conditions have a higher risk of sinusitis: ? Nasal mucus membrane swelling, as from a common cold or allergies ? Blockage of drainage ducts, leading to trapping of mucus ? Structure differences that narrow the drainage ducts ? Conditions that result in an increased risk of infection ? Polyps (growths) In children, common factors in the environment that contribute to sinusitis include allergies, illness from other children at day care or school, and smoke in the environment. In adults, the contributing factors are most frequently viral infections, allergies, and smoking. What are the signs and symptoms of acute sinusitis? The primary symptoms of acute sinusitis include: ? Facial pain/pressure/tenderness ? Nasal stuffiness ? Nasal discharge (thick yellow or green discharge from nose), especially if it is long-lasting. These also may be present with viral illness. ? Loss of smell and taste ? Cough/congestion Additional symptoms may include: ? Fever of 102? or higher ? Ear pain ? Headache ? Bad breath ? Fatigue ? Ache in upper jaw and teeth How is sinusitis diagnosed? To diagnose sinusitis, your doctor will discuss your symptoms and examine your nose for swelling and drainage. Your personal history is most important in diagnosing sinusitis. A physical exam of the ears, nose, and throat is performed to look for signs of obstruction (blockage) or infection. Some patients may have conditions that may need to be referred to a specialist, such as an ear, nose, and throat (ENT) physician. How is sinusitis treated? Acute sinusitis. If you have a simple sinusitis infection, your health care provider may recommend treatment with fcpi-gdj-phwhbul medications for cold and allergy, nasal saline irrigation, and drinking fluids (as most sinusitis is viral). Use of prescription intranasal steroid sprays might be added to help control symptoms. However, non- prescription drops or sprays should not be used beyond 5 days -- or they may actually increase congestion. If symptoms do not improve after at least 10 days, if the symptoms seem to be getting worse, or if medications for cold or allergy do not improve symptoms, a bacterial infection may be causing the sinusitis. In this case, antibiotics are given for 7 days in adults and 10 days in children. Antibiotics should improve symptoms within 48 hours. Chronic sinusitis. Treating chronic sinusitis begins with controlling the underlying condition, which is most often allergies. Standard treatments include intranasal steroid sprays, topical antihistamine sprays, or antihistamine pills, and leukotriene antagonists such as montelukast. Often you will be encouraged to rinse the nose with saline irrigations. Sometimes medications may be added to these irrigations. If sinusitis is not controlled, the next step is a visit with an Ear, Nose and Throat Specialist. Will I need to make lifestyle changes? If you have indoor allergies, avoiding triggers -- such as animal dander and dust mites ? is recommended in addition to medications. Smoking is never recommended, but if you do smoke, strongly consider a program to help you stop smoking, as this may be the main reason you have sinus infections. No special diet is required, but drinking extra fluids helps to thin nasal secretions. What are the symptoms of the common cold? An upper respiratory infection (the common cold) is usually caused by a virus that infects the nose and throat. Most upper respiratory infections are not bacterial and do not respond to antibiotics. A cold may cause swelling in the sinuses, preventing the outflow of mucus. Cold symptoms include nasal congestion, runny nose, post- nasal drip (nfda-ah-wkai release of nasal fluid into the back of the throat), headache, achiness, and fatigue. Cough and fever may also go along with these symptoms. Cold symptoms usually build, peak, and slowly disappear. No treatment is necessary for a cold, but some medications can ease symptoms. For example, decongestants may decrease drainage and open the nasal passages. Analgesics (pain relievers) may help with fever and headache. Cough medication may help, as well. Colds will typically last from a few days to about a week. What is the harm in getting an antibiotic for a common cold? Viral infections like the common cold are not cured by antibiotics. Taking an antibiotic for a viral infection unnecessarily puts you at risk for side effects related to the antibiotic. In addition, the overuse of antibiotics leads to antibiotic resistance, which may make future infections more difficult to treat. Finally, the use of inappropriate medication increases health care costs unnecessarily. What are the symptoms of nasal allergy? Symptoms of nasal allergy include: ? Sneezing ? Itchy nose ? Clear, watery nasal discharge ? Nasal blockage ? Feeling fatigued How is nasal allergy treated? Usually medications are prescribed to relieve symptoms. These may include antihistamines, with or without decongestants, or steroid nasal sprays. Other nasal sprays, which deliver antihistamines or cromolyn sodium, are sometimes helpful. If allergy symptoms are chronic (long- term), allergy testing and allergy shots (immunotherapy) may be helpful. How can I tell if I have a sinus infection, cold, or nasal allergy? Although the symptoms of sinusitis and nasal allergy may occur with a common cold, in general, cold-related symptoms disappear within 1 week. The point at which a normal cold ends and a sinus condition begins is not always easy to know. If you are fighting off a cold and develop symptoms of a sinus infection or nasal allergy, see your health care provider. You will be asked to describe your symptoms and medical history. ? How do I know if my sinus condition requires the care of an ear, nose, and throat specialist? Most routine sinus conditions are easily cared for by primary care physicians. If, however, you are bothered by ongoing abnormal symptoms, recurring infections, or have abnormal X-ray findings or complications, a referral to a specialist is appropriate. References ? Roxana Trinh al., IDSA Clinical Practice Guideline for Acute Bacterial Rhinosinusitis in Children and Adults. Clinical Infectious Diseases; 2012;54(8):8056-9736. ? Luís Craven, Sinusitis: Allergies, antibiotics, aspirin, asthma. [facility] Journal of Medicine 2006; 73(7): 671-678 ? National [place] of Allergy and Infectious Diseases. Sinusitis (Sinus Infection) Accessed 04/03/2015. ? [employer], Asthma, and Immunology. Sinusitis Accessed 04/03/2015. ? [employer], [employer] AND Immun[employer]. Sinus Information Accessed 04/03/2015. ? Baldo Trujillo., Prevalence of migraine in patients with a history of self-reported or physician-diagnosed sinus headache. [employer], 2004. 164(16):1769-72. ? Copyright 1281-0343 [facility]. All rights reserved. Prescriptions ordered this encounter Disp Refills Start End AMOXICILLIN 875 MG-POTASSIUM CLAVULA* 20 t* 0 07/30/2017 08/09/2017 Route: ORAL Sig: Take 1 tablet by mouth twice daily for 10 days. FLUCONAZOLE 150 MG TABLET 1 ta* 0 07/30/2017 07/31/2017 Route: ORAL Sig: Take 1 tablet by mouth once daily for 1 day. Encounter Status:Closed by LIZET SMITH CNP on 07/30/17 BASIC METABOLIC Collected: 07/27/2017 Status: F Source: ABELARDO PROFILE (BMP) 2:37 PM [facility] REPOSITORY TYPE CODE TESTS RESULT OUT OF RANGE REFERENCE UNITS LAB L501.0100 74-106 mg/dL Normal GLU 91 Result Comment: Please note revised GLUCOSE reference range effective 2017. LAB L501.1000 7-18 mg/dL Normal BUN 15 LAB L501.1100 0.55-1.02 mg/dL Normal CREAT,SERUM 0.62 Result Comment: The validity of the calculated GFR AND GFRAA in patients over 70 years has not been determined. Clinical correlation is essential. LAB L501.1110 >60 mL/min Normal EST GFR 108 Result Comment: Non- GFR Calc LAB L501.1115 >60 mL/min Normal EST GFR - AA 130 Result Comment: GFR Calc LAB L501.1300 10-20 RATIO High BUN/CRE 24.4 LAB L501.2200 8.5-10.1 mg/dL CA Normal 9.0 LAB L501.5300 136-145 mmol/L NA Normal 140 LAB L501.5600 3.5-5.1 mmol/L K Normal 4.0 LAB L501.5900 98-107 mmol/L CL Normal 104 LAB L501.6100 21.0-32.0 mmol/L Normal CO2 28.0 LAB L501.6200 5-15 Normal GAP 8 Performed By: #### L500.2500, L500.4100, L501.9310, L501.9520 #### [facility] [address] [place], [address] LIPID PROFILE Collected: 07/27/2017 Status: F Source: [place] 2:37 PM [facility] REPOSITORY TYPE CODE TESTS RESULT OUT OF RANGE REFERENCE UNITS LAB L501.4900 200 mg/dL Normal CHOL 186 Result Comment: <200 mg/dL Desirable 200-240 mg/dL Borderline >240 mg/dL High Risk LAB L501.5000 mg/dL Normal TRIG 125 Result Comment: The drugs N-Acetylcysteine and Metamizole may falsely depress this assay. Serum Triglycerides Reference Interval Normal <150 mg/dL Borderline high 150 - 199 mg/dL High 200 - 499 mg/dL Very High > or = 500 mg/dL LAB L501.6400 mg/dL Normal HDL 60 Result Comment: The drugs N-Acetylcysteine and Metamizole may falsely depress this assay. Reference Range HDL <40 mg/dL Low HDL Cholesterol HDL >or= 60 mg/dL High HDL Cholesterol LAB L501.6500 0-130 mg/dL Normal LDL 101 LAB L501.6600 5-40 mg/dL Normal VLDL 25 Performed By: #### L500.2500, L500.4100, L501.9310, L501.9520 #### [facility] [address] [place], [place], [id number] T4 TOTAL, THYROXIN Collected: 07/27/2017 Status: F Source: [place] 2:37 PM [facility] REPOSITORY TYPE CODE TESTS RESULT OUT OF REFERENCE UNITS RANGE LAB L501.9310 4.8-13.9 ug/dL T4 High THYROXIN 14.9 Performed By: #### L500.2500, L500.4100, L501.9310, L501.9520 #### [facility] [address] [place], [address] THYROID STIM HORMONE Collected: 07/27/2017 Status: F Source: [place] (TSH) 2:37 PM [facility] REPOSITORY TYPE CODE TESTS RESULT OUT OF RANGE REFERENCE UNITS LAB L501.9520 0.358-3.74 uIU/mL Normal TSH 0.40 Performed By: #### L500.2500, L500.4100, L501.9310, L501.9520 #### [facility] [address] [facility] [place], [address] PAP IG W/REFLEX HR Collected: 07/24/2017 Status: F Source: [place] HPV APTIMA 1:00 PM [facility] REPOSITORY Order Comment: CYTOLOGY INFORMATION: - CLINICAL INFORMATION: - DATE LMP/MENOPAUSE: LMP - COLLECTION VIAL: Thin Prep Vial - PRESCHOOL PRINCIPAL SOURCE: CERVICAL/ENDOCERVICAL - COLLECTION TECHNIQUE: BRUSH/SPATULA Specimen Comment: [id number] Specimen Comment: No. of containers..01 ThinPrep Vial TYPE CODE TESTS RESULT OUT OF RANGE REFERENCE UNITS LAB L7400.0800 . Normal DIAGN Comment Result Comment: NEGATIVE FOR INTRAEPITHELIAL LESION AND MALIGNANCY. LAB L7400.0900 . Normal ADEQ Comment Result Comment: Satisfactory for evaluation. Endocervical and/or squamous metaplastic cells (endocervical component) are present. LAB L7400.1400 . Normal PERFORM Comment Result Comment: Chyna Joseph, Unit Nurse (ASCP) LAB L7400.2575 . Normal TEST METHOD Comment Result Comment: This liquid based ThinPrep(R) pap test was screened with the use of an image guided system. LAB L7400.2600 . Normal . COMM LAB L7400.2700 . Normal PAPSMR Comment Result Comment: The Pap smear is a screening test designed to aid in the detection of premalignant and malignant conditions of the uterine cervix. It is not a diagnostic procedure and should not be used as the sole means of detecting cervical cancer. Both false-positive and false-negative reports do occur. LAB L7400.2800 . Normal HPV RFLX Comment Result Comment: The HPV DNA reflex criteria were not met with this specimen result therefore, no HPV testing was performed. Performed at: [facility] [place] [id number] Foreign Exchange Student Coordinator: Reina Vang MD, Phone: [phone] Performed By: #### L7400.0357 #### [facility] (refer to report for specific site) refer to report for address and phone number ALLERGIES ALLERGIES DATE TYPE / CODE NAME / CODE REACTION SEVERITY SOURCE 08/15/2016 Drug No Known Unknown [facility] Allergy/416 Allergies/H04572 Hospital 128381(SNOM 0388(RXNORM) Repository ED CT) Drug NO KNOWN [facility] Class/36898 ALLERGIES [address] [place] 1003(SNOMED Repository CT) ENCOUNTERS ENCOUNTERS ADMIT/DISCHARGE ACCOUNT NUMBER ADMITTING ENCOUNTER LOCATION SOURCE CLASS 06/14/2018/06/15/19 [id number] Ambulatory [address] Repository 06/09/2018 [id number] [facility] ding:CT Repository 04/26/[id number] [facility] Repository ng:H.PM 02/03/[id number] [facility] Repository ng:H.PM 11/28/2017/11/29/19 [id number] Emergency BBuilding:[address] Repository 11/17/[id number] [facility] Repository ng:H.PM 09/23/2017 [id number] [facility] ding:LABSPEC Repository 09/17/2017 [id number] [facility] ding:LABSPEC Repository 09/02/2017 [id number] Inpatient [facility] Repository ng:H.PM 08/25/[id number] [facility] Repository ng:H.PM 07/30/2017/07/31/19 [id number] Ambulatory [address] Repository 07/27/2017 [id number] Ambulatory [facility] ding:MFPLAB Repository 07/24/2017 [id number] Ambulatory [facility] ding:LABSPEC Repository PAYERS PAYERS ENCOUNTER GUARANTOR PAYER SUBSCRIBER SOURCE 06/09/2018 DOTTIE A Primary Insurance:[facility] DOTTIE A Abelardo [id number] [facility] FRESHMANDOB: [facility] Number: [id number] [place], [place] [id number] Repository [address]Tqa: ([phone]) Date:[id number] [phone] () [address] [place] [address]CO: 06/09/2018 Secondary NOT GIVENUNK Abelardo Insurance:SELF PAY [facility] Number: Effective Repository Date:2018-04-12 04/26/2018 [place] [address] [facility] [place] MEDICAIDPolicy [id number]: (330) Number: -[phone] () [id number] Date:[address] [place] [address] 56744KU: 02/03/2018 [place] [address] [facility] Number: Repository [place], [place] [id number]: (330) Date:2017-06-25P.O. [phone] () [address] [place] [address]DN: 11/28/2017 [facility] Primary [facility] FRESHMANDOB: Insurance:CARESOURCE FRESHMANDOB: [facility] MEDICAIDPolicy [id number] Repository [facility] Number: [place] [id number] [facility] [place], [place] [address]Cty: (330) Date:2017-11-28 [phone]: () [id number] [phone] ()Tel: Name:[address] [place] [address] (HR) [address]VB: 11/17/2017 [facility] [id number] Insurance[facility]OURCEP [facility] Number: Repository [place], [place] [id number]: (330) Date:2017-06-25P.O. [phone] () [address], [place] [address]QL: 09/23/2017 [facility] Dottie A [place] [id number] Insurance:CARESOURCEP FreshmanDOB: [facility] Number: [id number] [id number] Repository [address]Som: (330) Date:2017-09-23P O [phone] () [address]ATTN: [place] [address]WJ: 09/23/2017 Secondary NOT GIVENUNK [place] Insurance:SELF PAY [facility] Number: Effective Repository Date:2017-09-23 09/17/2017 [facility] Dottie A Abelardo [id number] Insurance:CARESOURCEP FreshmanDOB: [facility] Number: [id number], [place] [id number] Repository [address]Crh: (330) Date:2017-09-17P O [phone] () [address]ATTN: [place] [address]LP: 09/17/2017 Secondary NOT GIVENUNK [place] Insurance:SELF PAY [facility] Number: Effective Repository Date:2017-09-17 09/02/2017 [facility] [id number] [facility] Number: Repository [place], [place] [id number]: (330) Date:2017-06-25P.O. [phone] (HP) [address], [place] [address]YA: 08/25/2017 [facility] [id number] Insurance:CARESOURCEP FRESHMANUNK [facility] Number: Repository [place], [place] [id number]: (330) Date:[phone] (HP) [address], [place] [address]UP: 07/27/2017 [facility] A [place] [id number] Insurance:CARESOURCEP FreshmanDOB: [facility] Number: [id number], [place] [id number] Repository [address]Slj: (330) Date:2017-07-27P O [phone] () [address]ATTN: [place] [address]KR: 07/27/2017 Secondary NOT GIVENUNK [place] Insurance:SELF PAY [facility] Number: Effective Repository Date:2017-07-27 07/24/2017 [facility] A [place] [id number] Insurance:CARESOURCEP FreshmanDOB: [facility] Number: [id number], [place] [id number] Repository [address]Tep: (330) Date:2017-07-24P O [phone] () [address]ATTN: [place] [address]BE: 07/24/2017 Secondary NOT GIVENUNK [place] Insurance:SELF PAY [facility] Number: Effective Repository Date:2017-07-24
== END ==
PROVIDERS: Family Provider Family Medicine; PCP Family Medicine; Referring Provider Internal Medicine Pulmonary Disease; Visit Provider Internal Medicine Pulmonary Disease
DX: Z87.891 Personal history of nicotine dependence (principal); Z12.2 Encounter for screening for malignant neoplasm of respiratory organs
CPT/HCPCS: G0297

== ENCOUNTER → 2018-07-02 15:54 | Outpatient (CLI) | payer MEDICAID, SELFPAY | PROVIDERS: Family Provider Family Medicine; PCP Family Medicine; Referring Provider Family Medicine; Visit Provider Family Medicine | DX: L02.91 Cutaneous abscess, unspecified (principal) | CPT/HCPCS: 87070; 87077; 87186; 87205 ==

== ENCOUNTER 2018-07-14 17:30 | Emergency (ER) | payer MEDICAID, SELFPAY ==
[2018-07-14 17:31] VITALS: BP 163/72; PULSE 95; RESP 18; TEMP 36.6; O2SAT 95; BMI 50.1
--- NOTE | 2018-07-14 17:56 | ED.DCSUM_ITS ---
- ER Visit Summary Date of Service: 07/14/18 Chief Complaint: [Cough] History of Present Illness: The patient is a 53 F [presents with a cough as well as body aches that started last evening. Patient states that she just does not feel well. Patient states that her daughter is been sick with similar type s ymptoms for about 3 days. Patient denies any fever. Cough is mostly nonproductive but occasionally she will have some white phlegm.] Physical Examination: [HEENT-PERRLA, EOMI. Cranial nerves II through XII grossly intact. TMs clear. Mucous membranes moist. No adenopathy. Cardiovascular-regular rate and rhythm without murmur or ectopy Lungs-clear to auscultation, chest wall stable without crepitus or subcu emphysema Abdomen-normoactive bowel sounds, soft, nontender, no rebound or rigidity, no peritoneal signs. Extremities-intact ?4, normal range of motion, normal pulses, atraumatic] Test Results: [None indicated] Emergency Department Course and Treatment: [I suspect patient likely has a viral upper respiratory infection possibly even influenza. Discussed possibility of treating with Tamiflu and she would like to hold off at this time. We will treat her symptomatically for her cough. Patient advised to push fluids and follow-up with primary care physician in 5-7 days.] Treatment Plan: [Tessalon Perles for cough and advised to push fluids and get lots of rest.] Disposition: [Discharged home in stable condition] Impression: [Viral URI] This note was generated with [employer] dictation software. It may contain incorrect words, spelling, and punctuation that were not noted in review of the chart prior to signing ED Disposition - Plan for ED Patient: Referrals: Reny Damian MD [Primary Care Provider] -
--- NOTE | 2018-07-14 17:56 | ED.DEP ---
ED Disposition - Plan for ED Patient: Instructions: ED Upper Resp Infec No Abx Tx Prescriptions: Benzonatate [Tessalon Perle] 200 mg PO TID PRN PRN #20 cap PRN Reason: Cough Referrals: Reny Damian MD [Primary Care Provider] - 5-7 Days
== END 2018-07-14 18:07 | disposition home or self-care (01) ==
LOC: ED 18:05
PROVIDERS: Emergency Provider Emergency Medicine; Family Provider Family Medicine; PCP Family Medicine
DX: J06.9 Acute upper respiratory infection, unspecified (principal)
CPT/HCPCS: 99282

== ENCOUNTER 2018-08-18 10:36 | Outpatient (RCR) | payer MEDICAID, SELFPAY | END 2018-08-22 23:59 | LOC: NS 10:36 | PROVIDERS: Family Provider Family Medicine; PCP Family Medicine; Visit Provider Orthopaedic Surgery | DX: E66.9 Obesity, unspecified (principal); Z68.42 Body mass index [BMI] 45.0-49.9, adult | CPT/HCPCS: 97802 ==

== ENCOUNTER 2018-08-31 13:34 | Emergency (ER) | payer MEDICAID, SELFPAY ==
[2018-08-31 13:34] VITALS: BP 170/77; PULSE 95; RESP 18; TEMP 36.6; O2SAT 97; BMI 48.0
[2018-08-31 14:01] VITALS: BP 130/77; PULSE 91; RESP 18; O2SAT 94
--- NOTE | 2018-08-31 14:04 | RAD_ITS ---
STUDY: X-RAY - LEFT ELBOW REASON FOR EXAM: Female, 53 years old. Posterior and lateral soft tissue swelling and bruising following a fall. TECHNIQUE: 3 view(s) of the elbow. COMPARISON: None. FINDINGS: Normal visualized humerus, radius and ulna. There is degenerative arthrosis of the radiocapitellar and ulnotrochlear articulations. The soft tissue structures are unremarkable. RAD/Elbow min 3 Views IMPRESSION: No acute abnormality is seen. Electronically Signed: Naren Yoo, at 14:53 EDT , Service support ,
--- NOTE | 2018-08-31 15:04 | ED.DCSUM_ITS ---
- ER Visit Summary Date of Service: 08/31/18 Chief Complaint: Fall History of Present Illness: The patient is a 53 F who had a mechanical fall just prior to arrival. She tripped and hit her left elbow. She reports bruising and swelling to the area. No other injuries or complaints. No loss of consciousne ss. Physical Examination: Afebrile and vital signs unremarkable. Head and neck are atraumatic. Regular. Lungs clear. Left elbow shows ecchymosis and swelling. Good range of motion. No deformity. Neurovascular intact distally. Skin intact. Legs atraumatic. Negative logroll. Remainder of her exam is unremarkable. Test Results: X-rays of her elbow were negative. Emergency Department Course and Treatment: Patient declined pain medicine. She has her own Motrin. X-rays were negative. Rest, ice, elevate. Anti- inflammatories for pain. Follow-up with primary care. Return right away for any problems. Treatment Plan: As above Disposition: Discharge Impression: 1. Left elbow contusion This note was generated with [employer] dictation software. It may contain incorrect words, spelling, and punctuation that were not noted in review of the chart prior to signing ED Disposition - Plan for ED Patient: Referrals: Reny Damian MD [Primary Care Provider] -
--- NOTE | 2018-08-31 15:04 | ED.DEP ---
ED Disposition - Plan for ED Patient: Instructions: ED Contusion Upper Ext Referrals: Reny Damian MD [Primary Care Provider] -
[2018-08-31 15:17] VITALS: BP 121/77; PULSE 84; RESP 16; O2SAT 95
== END 2018-08-31 15:19 | disposition home or self-care (01) ==
LOC: ED 14:08
PROVIDERS: Emergency Provider Emergency Medicine; Family Provider Family Medicine; PCP Family Medicine
DX: S50.02XA Contusion of left elbow, initial encounter (principal); Z87.891 Personal history of nicotine dependence; W01.0XXA Fall on same level from slipping, tripping and stumbling without subsequent striking against object, initial encounter; Y93.01 Activity, walking, marching and hiking; Y92.89 Other specified places as the place of occurrence of the external cause; Y99.8 Other external cause status
CPT/HCPCS: 73080; 99282

== ENCOUNTER 2018-09-16 15:00 | Outpatient (RCR) | payer MEDICAID, SELFPAY | END 2018-09-21 23:59 | LOC: NS 15:00 | PROVIDERS: Family Provider Family Medicine; PCP Family Medicine; Visit Provider Orthopaedic Surgery | DX: E66.9 Obesity, unspecified (principal); Z68.42 Body mass index [BMI] 45.0-49.9, adult; Z71.3 Dietary counseling and surveillance | CPT/HCPCS: 97803 ==

== ENCOUNTER 2018-10-14 11:00 | Outpatient (RCR) | payer MEDICAID, SELFPAY | END 2018-10-22 23:59 | LOC: NS 11:00 | PROVIDERS: Family Provider Family Medicine; PCP Family Medicine; Visit Provider Orthopaedic Surgery | DX: E66.9 Obesity, unspecified (principal); Z68.42 Body mass index [BMI] 45.0-49.9, adult; Z71.3 Dietary counseling and surveillance | CPT/HCPCS: 97803 ==

== ENCOUNTER 2018-11-09 09:19 | Outpatient (RCR) | payer MEDICAID, SELFPAY | END 2018-11-21 23:59 | LOC: NS 09:19 | PROVIDERS: Family Provider Family Medicine; PCP Family Medicine; Visit Provider Orthopaedic Surgery | DX: E66.9 Obesity, unspecified (principal); Z68.42 Body mass index [BMI] 45.0-49.9, adult; Z71.3 Dietary counseling and surveillance ==

== ENCOUNTER 2018-11-09 12:00 | Outpatient (RCR) | payer MEDICAID, SELFPAY ==
--- NOTE | 2018-10-11 14:45 | HP.PTEVAL ---
Patient's Visit Information TONEY Sargent FRESHMAN is a 53 year old F referred to Physical Therapy by Reny Damian MD with a diagnosis of MUSCLE STRAIN NECK AND UPPER TORSO. Date of Evaluation: 10/11/18 Physical Therapist: Axel Hernandez PT, Cert MDT, OCS - Visit Plan Frequency: 2x /Week Duration: 4 Weeks Plan: Interventions cervical/postural ex's,modalties cervical /left elbow as needed,manual therapy STM cervical spine - Subjective Findings: This 53 y/o female presents to physical therapy to physical therapy with muscle strain neck and upper torso. [place] on left side and arm/elbow. Patient went to ER DOI x-rays elbow . DOI 08/31/[address] griffith PT . Patient symptom located left ,Left cervical ,shoulder. Patient constant dull ache. Patient has tingling right hand. Patient c/o PHILLIPS left side neck. Denies dizziness/nausea. Sleeping okay night. Aggravating factors rotationg neck ,moving arms [place] for ADL'S and job demands working on [employer] ,house chores ect.Elbow Patient symptoms affect QOL and function. SOCIAL: . VOCATION: Hairdresser - Pain Left Neck Pain Intensity (Out of 10): 8 Comment: activity Left Shoulder Pain Intensity (Out of 10): 6 Pain Intensity Range: 10 Left Elbow Pain Intensity (Out of 10): 7 Pain Intensity Range: 10 - Objective POSTURE: mild foward posture ,rounded shoulders head foward. NEURO: intact ,reflexes C5-6-7 3/3. PALAPTION: tender left lateral epicondlye,left levator,UT ,OA. AROM: flexion/abd 150 degrees,ER 90 ,75 degrees pain at ER with flexion. MMT: 4/5 shoulder 4-/5. CERVICAL ROM: flexion min loss,lateral flexion /rotation mod loss pain left side ,extension min loss - Special Tests C/S Radiculapathy - Left Upper limb tension test: Negative C/S Radiculapathy - Right Upper limb tension test: Negative C/S Radiculapathy - Left Spurlings: Negative C/S Radiculapathy - Right Spurlings: Negative C/S Radiculapathy - Left Cervical distraction: Negative C/S Radiculapathy - Right Cervical distraction: Negative Sharp Jeimy: Negative Vertebral Artery Test: Negative Alar Ligament Test: Negative - Goals Goal 1:: Independant with HEP Goal Time Frame: 4-6 Weeks Goal 2:: Improve posture for work demands by 75% or greater . Goal Time Frame: 4-6 Weeks Goal 3:: Decrease cervical and neck elbow pain by 50% or greater to improve function . Goal Time Frame: 4-6 Weeks Goal 4:: Patient cer vical ROM for function of recovery. Goal Time Frame: 4-6 Weeks Goal 5:: Patient improve ADL's and job demands with min limitation. 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 Rehabilitation Potential: Good - Anticipated Interventions Patient/Client Instruction: Educate patient on: Condition, Plan of Care For the Purpose of:: To decrease pain, To increase ROM, To improve muscle performance and motor function, To improve ability to perform ADL's, To increase tolerance to activity/condition/position, To improve ability of physical actions for home/community/work/leisure, To improve health of tissue, To decrease soft tissue restriction, To increase flexibility/ROM, To improve ability to perform tasks related to life management Therapeutic Exercise to Include: Strength training, Postural training, Flexibilty training, Active ROM For the Purpose of:: To decrease pain, To increase ROM, To improve muscle performance and motor function, To improve ability to perform ADL's, To increase tolerance to activity/condition/position, To improve ability of physical actions for home/community/work/leisure, To improve health of tissue, To decrease soft tissue restriction, To increase flexibility/ROM, To improve ability to perform tasks related to life management Manual Therapy Techniques to Include: Mobilization, Soft tissue mobilization Comment: CERVICAL For the Purpose of:: To decrease pain, To increase ROM, To improve nutrient delivery to tissue, To increase oxygenation perfusion, To improve health of tissue, To decrease soft tissue restriction TENS: Yes IF ES: Yes Cryotherapy (ice pack, ice massage): Yes Thermo therapy (hot pack): Yes Ultrasound (thermal/non thermal): Yes For the Purpose of:: To decrease pain, To improve nutrient delivery to tissue, To increase oxygenation perfusion, To decrease soft tissue restriction, To increase flexibility/ROM Thank you for the opportunity to evaluate your patient. For Medicare and Medicare HMO plans, please review the plan of care and approve it. It will need to be FAXED BACK to us at [phone] for Medicare purposes. For Medicare only, by signing this I certify the plan of care. Please let me know if there are questions or concerns regarding this plan of care. Physician Signature: Date:
--- NOTE | 2019-01-28 14:50 | HP.PTDCNRP_ITS ---
HP - Discharge Summary (1) - Patient Information TONEY A FRESHMAN was seen in my office for initial evaluation on 10/11/18. The following Plan of Care was established for this patient: Initial Frequency: 2x /Week Initial Duration: 4 Weeks - Anticipated Interventions Patient/Client Instruction: Educate patient on: Condition, Plan of Care For the Purpose of:: To decrease pain, To increase ROM, To improve muscle pe rformance and motor function, To improve ability to perform ADL's, To increase tolerance to activity/condition/position, To improve ability of physical actions for home/community/work/leisure, To improve health of tissue, To decrease soft tissue restriction, To increase flexibility/ROM, To improve ability to perform tasks related to life management Therapeutic Exercise to Include: Strength training, Postural training, Flexibilty training, Active ROM For the Purpose of:: To decrease pain, To increase ROM, To improve muscle performance and motor function, To improve ability to perform ADL's, To increase tolerance to activity/condition/position, To improve ability of physical actions for home/community/work/leisure, To improve health of tissue, To decrease soft tissue restriction, To increase flexibility/ROM, To improve ability to perform tasks related to life management Manual Therapy Techniques to Include: Mobilization, Soft tissue mobilization Comment: CERVICAL For the Purpose of:: To decrease pain, To increase ROM, To improve nutrient delivery to tissue, To increase oxygenation perfusion, To improve health of tissue, To decrease soft tissue restriction TENS: Yes IF ES: Yes Cryotherapy (ice pack, ice massage): Yes Thermo therapy (hot pack): Yes Ultrasound (thermal/non thermal): Yes For the Purpose of:: To decrease pain, To improve nutrient delivery to tissue, To increase oxygenation perfusion, To decrease soft tissue restriction, To increase flexibility/ROM This patient was last seen in our office 11/04/18. Pertinent comments regarding their Physical therapy will appear below: Patient seen for PT for cervical pain and upper torso pain. Treatment focused on cervical postural ex's,manual therapy and modalties. Patient progressing with decreasing pain for function and job demands.Thus ,is d/c At this point I will be discontinuing this patient from physical therapy. I would be happy to see this patient again in the future if found appropriate by the physician. Thank you! Axel Hernandez, PT, Cert MDT, OCS
== END 2018-11-09 19:00 | disposition home or self-care (01) ==
LOC: PT 12:00
PROVIDERS: Family Provider Family Medicine; PCP Family Medicine; Referring Provider Family Medicine; Visit Provider Family Medicine
DX: S16.1XXD Strain of muscle, fascia and tendon at neck level, subsequent encounter (principal); S46.911D Strain of unspecified muscle, fascia and tendon at shoulder and upper arm level, right arm, subsequent encounter; E66.9 Obesity, unspecified; Z68.42 Body mass index [BMI] 45.0-49.9, adult; Z71.3 Dietary counseling and surveillance
CPT/HCPCS: 97012; 97014; 97035; 97110; 97140; 97162; 97803; G0283

== ENCOUNTER 2018-12-10 11:30 | Outpatient (RCR) | payer MEDICAID, SELFPAY | END 2018-12-22 23:59 | LOC: NS 11:30 | PROVIDERS: Family Provider Family Medicine; PCP Family Medicine; Visit Provider Orthopaedic Surgery | DX: E66.9 Obesity, unspecified (principal); Z68.42 Body mass index [BMI] 45.0-49.9, adult; Z71.3 Dietary counseling and surveillance | CPT/HCPCS: 97803 ==

== ENCOUNTER → 2018-12-23 | Outpatient (CLI) | payer MEDICAID, SELFPAY ==
[2018-12-23 22:46] LABS: Amphetamine Urine VISTA POSITIVE (<1000 ng/mL); Barbiturate Urine VISTA NEGATIVE (< 200 ng/mL); Benzodiazepine Urine VISTA POSITIVE (< 200 ng/mL); Cocaine Urine VISTA NEGATIVE (< 300 ng/mL); Ecstacy Urine VISTA NEGATIVE (< 500 ng/mL); Methadone Urine VISTA NEGATIVE (< 300 ng/mL); PCP Urine VISTA NEGATIVE (< 25 ng/mL); THC Urine VISTA NEGATIVE (< 50 ng/mL); Vista UDS pH Range 5
== END | disposition home or self-care (01) ==
LOC: LABSPEC 22:00
PROVIDERS: Family Provider Family Medicine; PCP Family Medicine; Referring Provider Psychiatry & Neurology Psychiatry; Visit Provider Psychiatry & Neurology Psychiatry
DX: Z79.899 Other long term (current) drug therapy (principal)
CPT/HCPCS: 80307

== ENCOUNTER 2019-01-12 10:30 | Outpatient (RCR) | payer MEDICAID, SELFPAY | END 2019-01-12 23:59 | disposition home or self-care (01) | LOC: NS 10:30 | PROVIDERS: Family Provider Family Medicine; PCP Family Medicine; Visit Provider Orthopaedic Surgery | DX: E66.9 Obesity, unspecified (principal); Z68.42 Body mass index [BMI] 45.0-49.9, adult; Z71.3 Dietary counseling and surveillance | CPT/HCPCS: 97803 ==

== ENCOUNTER → 2019-03-04 | Outpatient (CLI) | payer MEDICAID, SELFPAY ==
--- NOTE | 2019-03-04 12:03 | BI_ITS ---
BILATERAL DIGITAL MAMMOGRAM WITH TOMOSYNTHESIS: Mediolateraloblique and craniocaudal views demonstrate no evidence of dominant parenchymal masses. No cluster of microcalcifications or architectural distortion is seen. No evidence of skin thickening is identified. There has been no significant change since 06/25/2016. Breast Density: The breast tissue is extremely dense which may lower the sensitivity of mammography. CAD was used to assist in final assessment. BI/SCREEN MAMM (CAD) W/RUSSELL BILAT IMPRESSION: NORMAL MAMMOGRAM BILATERALLY. ) ASSESSMENT CATEGORY: FINAL ASSESSMENT: BI-RAD CATEGORY I (NEGATIVE) YEARLY MAMMOGRAPHY RECOMMENDED Approximately 10% of breast cancers are not detected by mammography. A normal mammogram should not delay biopsy of a clinically suspicious abnormality. [id number] Electronically Signed: Azeem Martin, at 17:24 EDT Tel , Service support ,
== END | disposition home or self-care (01) ==
LOC: OPBI 12:01
PROVIDERS: Family Provider Family Medicine; PCP Family Medicine; Referring Provider Obstetrics & Gynecology; Visit Provider Obstetrics & Gynecology
DX: Z12.31 Encounter for screening mammogram for malignant neoplasm of breast (principal)
CPT/HCPCS: 77063; 77067

== ENCOUNTER → 2019-03-15 | Outpatient (CLI) | payer MEDICAID, SELFPAY ==
[2019-03-15 16:03] LABS: Thyroid Stim Hormone (TSH) 1.44 uIU/mL (0.358-3.74)
== END | disposition home or self-care (01) ==
LOC: MFPLAB 13:55
PROVIDERS: Family Provider Family Medicine; PCP Family Medicine; Referring Provider Family Medicine; Visit Provider Family Medicine
DX: E03.9 Hypothyroidism, unspecified (principal)
CPT/HCPCS: 36415; 84443

== ENCOUNTER → 2019-06-29 12:53 | Outpatient (CLI) | payer MEDICAID, SELFPAY ==
--- NOTE | 2019-06-29 12:55 | CT_ITS ---
STUDY: LOW DOSE CT LUNG CANCER SCREENING REASON FOR EXAM: Female, 54 years old. PRIOR TOBACCO USE, QUIT 2014 WAS 1 PPD X 35 YEARS. RADIATION DOSAGE (If Supplied By Facility): CTDIvol = ( 3.40 ) mGy, DLP = ( 104.24 ) mGycm TECHNIQUE: No contrast was administered. Low dose technique was utilized (average mAS-38 and kVp 120). 1.25 mm axial source images with a slice interval of 1.25-mm were reconstructed in lung windows. 2.5 mm axial source images with a slice interval of 2.5-mm were reconstructed in lung windows. 5.0 mm axial source images with a slice interval of 5.0-mm were reconstructed in soft tissue windows. Nodule measured using lung windows on PACS and/or independent workstation with automated measurement of minimum and maximum diameter. Nodule measurement reported as average diameter rounded to the nearest whole number. Growth is defined as an increase ins size of greater than 1.5 mm. COMPARISON: Comparison is made with prior examination dated June 09, 2018. NODULES: No suspicious nodule is seen. Emphysema: Mild degree of emphysematous changes. Stable bulla in the lateral aspect of the lingular segment of the left upper lobe. Findings suggestive of a stable scarring in the anterior medial aspect of the right middle lobe. Endobronchial lesion: None Aorta: Atherosclerotic plaque formation of the aortic arch. Coronary arteries: Coronary artery calcification. Mediastinal nodes: Small mediastinal lymph nodes. Other chest and abdominal findings: Degenerative changes of the thoracic spine. CT/Low Dose CT Lung Screening IMPRESSION: Lung-RADS category 2 - Continue annual screening with LDCT in 12 months. IMPORTANT NOTES FOR USE: ACR Lung-RADS Version 1.0 Assessment Categories Release Date: September 19, 2013 Category: Coded 0-4 bases on nodule(s) with highest degree of suspicion. Negative screen is defined as categories 1 and 2; a positive screen is defined as categories 3 and 4. Category 3 and 4A nodules that are unchanged on interval CT should be coded as category 2, and individuals returned to screening in 12 months. Category 4X: Category 3 or 4 nodules with additional imaging findings that increase the suspicion of lung cancer, such as spiculation, GGN that doubles in size in 1 year, enlarged lymph notes, etc. Category Modifiers: S (significant finding unrelated to lung cancer) and C (prior history of treated lung cancer) may be added to the 0-4 Lung-RADS Electronically Signed: Naren Yoo, at 16:29 EST , Service support ,
== END ==
PROVIDERS: Family Provider Family Medicine; PCP Family Medicine; Referring Provider Internal Medicine Pulmonary Disease; Visit Provider Internal Medicine Pulmonary Disease
DX: Z87.891 Personal history of nicotine dependence (principal)
CPT/HCPCS: G0297

== ENCOUNTER 2019-09-01 17:56 | Emergency (ER) | payer MEDICAID, SELFPAY ==
[2019-09-01 17:57] VITALS: BP 160/77; PULSE 91; RESP 14; TEMP 36.8; O2SAT 98; BMI 48.9
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
--- NOTE | 2019-09-01 18:30 | RAD_ITS ---
STUDY: X-RAY - LEFT KNEE REASON FOR EXAM: Female, 54 years old. pt arrives to ED with left knee pain related to falling backwards. TECHNIQUE: 4 view(s) of the knee. COMPARISON: None. FINDINGS: Normal visualized distal femur. Normal visualized proximal tibia and fibula. Normal proximal tibiofibular articulation. There is no demonstrated fracture. There is moderate degenerative arthrosis of the medial femorotibial compartment with moderate joint space narrowing. There is mild degenerative arthrosis of the lateral femorotibial compartment. There is moderate degenerative arthrosis of the patellofemoral articulation. The soft tissue structures are unremarkable. RAD/Knee 4 or More Views IMPRESSION: Degenerative arthrosis. Electronically Signed: Galo Pacheco MD at 18:51 EDT , Service support ,
--- NOTE | 2019-09-01 19:04 | ED.DEP ---
ED Disposition - Plan for ED Patient: Instructions: ED Sprain Knee Referrals: Reny Damian MD [Primary Care Provider] - Bobby Garcia MD [STAFF PHYSICIAN] -
== END 2019-09-01 19:15 | disposition home or self-care (01) ==
LOC: ED 18:30
PROVIDERS: Emergency Provider Emergency Medicine; PCP Family Medicine
DX: S83.92XA Sprain of unspecified site of left knee, initial encounter (principal); W01.0XXA Fall on same level from slipping, tripping and stumbling without subsequent striking against object, initial encounter; Y93.89 Activity, other specified; Y92.099 Unspecified place in other non-institutional residence as the place of occurrence of the external cause; Y99.8 Other external cause status
CPT/HCPCS: 73564; 99282

== ENCOUNTER → 2020-03-07 | Outpatient (CLI) | payer MEDICAID, SELFPAY ==
[2020-03-15 15:27] LABS: HPV Reflexed? NOT INDICATED
== END | disposition home or self-care (01) ==
LOC: LABSPEC 13:21
PROVIDERS: PCP Family Medicine; Visit Provider Obstetrics & Gynecology
DX: Z12.4 Encounter for screening for malignant neoplasm of cervix (principal)
CPT/HCPCS: 88175; G0145

== ENCOUNTER → 2020-07-04 13:04 | Outpatient (CLI) | payer MEDICAID, SELFPAY ==
--- NOTE | 2020-07-04 13:07 | CT_ITS ---
STUDY: LOW DOSE CT LUNG CANCER SCREENING REASON FOR EXAM: Female, 55 years old. LUNG CANCER SCREENING. 1 PPD X 35 YRS. QUIT 7 YEARS AGO RADIATION DOSAGE (If Supplied By Facility): CTDIvol = ( 4.02 ) mGy, DLP = ( 131.90 ) mGycm TECHNIQUE: No contrast was administered. Low dose technique was utilized (average mAS-38 and kVp 120). 1.25 mm axial source images with a slice interval of 1.25-mm were reconstructed in lung windows. 2.5 mm axial source images with a slice interval of 2.5-mm were reconstructed in lung windows. 5.0 mm axial source images with a slice interval of 5.0-mm were reconstructed in soft tissue windows. Nodule measured using lung windows on PACS and/or independent workstation with automated measurement of minimum and maximum diameter. Nodule measurement reported as average diameter rounded to the nearest whole number. Growth is defined as an increase ins size of greater than 1.5 mm. COMPARISON: Comparison is made with prior examination dated 06/29/2019. NODULES: No suspicious nodules seen. Emphysema: Mild degree of emphysematous changes. Stable bullous formation in the lateral aspect of the lingular segment of the left upper lobe with focal scarring. Minimal linear scarring in the anterior medial aspect of the right middle lobe. Endobronchial lesion: None Aorta: Atherosclerotic plaques of the aortic arch. Coronary arteries: Coronary artery calcification. Heart: Unremarkable Pulmonary artery: Unremarkable Mediastinal nodes: Small benign-appearing mediastinal lymph nodes. Other chest and abdominal findings: Degenerative changes of the thoracic spine. CT/Low Dose CT Lung Screening IMPRESSION: Lung-RADS category 2 - Continue annual screening with LDCT in 12 months. IMPORTANT NOTES FOR USE: ACR Lung-RADS Version 1.0 Assessment Categories Release Date: September 19, 2013 Category: Coded 0-4 bases on nodule(s) with highest degree of suspicion. Negative screen is defined as categories 1 and 2; a positive screen is defined as categories 3 and 4. Category 3 and 4A nodules that are unchanged on interval CT should be coded as category 2, and individuals returned to screening in 12 months. Category 4X: Category 3 or 4 nodules with additional imaging findings that increase the suspicion of lung cancer, such as spiculation, GGN that doubles in size in 1 year, enlarged lymph notes, etc. Category Modifiers: S (significant finding unrelated to lung cancer) and C (prior history of treated lung cancer) may be added to the 0-4 Lung-RADS Electronically Signed: Naren Yoo MD at 13:53 EST , Service support ,
== END ==
PROVIDERS: PCP Family Medicine; Referring Provider Internal Medicine Pulmonary Disease; Visit Provider Internal Medicine Pulmonary Disease
DX: Z87.891 Personal history of nicotine dependence (principal); Z12.2 Encounter for screening for malignant neoplasm of respiratory organs
CPT/HCPCS: 71271

== ENCOUNTER 2020-07-16 13:35 | Outpatient (RCR) | payer MEDICAID, SELFPAY | END 2020-07-22 23:59 | LOC: NS 13:35 | PROVIDERS: PCP Family Medicine; Visit Provider Physician Assistant Surgical | DX: Z71.3 Dietary counseling and surveillance (principal); E66.9 Obesity, unspecified; Z68.42 Body mass index [BMI] 45.0-49.9, adult | CPT/HCPCS: 97802 ==

== ENCOUNTER 2020-08-14 13:45 | Outpatient (RCR) | payer MEDICAID, SELFPAY | END 2020-08-22 23:59 | LOC: NS 13:45 | PROVIDERS: PCP Family Medicine; Visit Provider Physician Assistant Surgical | DX: Z71.3 Dietary counseling and surveillance (principal); E66.9 Obesity, unspecified; Z68.42 Body mass index [BMI] 45.0-49.9, adult | CPT/HCPCS: 97803 ==

== ENCOUNTER → 2020-08-17 11:31 | Outpatient (CLI) | payer MEDICAID, SELFPAY ==
[2020-08-17 15:09] LABS: Absolute Lymphocyte Count 1.88 X10^3/uL (0.83-4.51); Absolute Neutrophil Count 5.2 X10^3/uL (2.0-7.7); Basophil# 0.05 X10^3/uL; Basophil% 0.6 % (0-1); Eosinophil# 0.28 X10^3/uL; Eosinophils% 3.5 % (0-5); Hematocrit 43.7 % (37-47); Hemoglobin 13.4 g/dL (12.0-15.0); Lymphocyte # 1.88 X10^3/ul (4.0); Lymphocyte % 23.6 % (19-41); Mean Corp Hgb Conc 30.7 g/dL (32-36); Mean Corpuscular Hgb 26.5 pg (27.0-32.0); Mean Corpuscular Volume 86.4 fL (81-99); Monocyte# 0.54 X10^3/uL; Monocyte% 6.8 % (0-10); NRBC Flagged by Analyzer 0 % (0-5); Neutrophil % 65.2 % (47-70); Platelet Count 369 K/mm3 (150-450); RBC Distribution Width CV 14.7 % (11.6-14.6); RBC Distribution Width SD 47.3 fl (35.1-43.9); Red Blood Count 5.06 M/mm3 (4.2-5.4)
[2020-08-17 15:23] LABS: Vitamin B12 321 pg/mL (211-911)
[2020-08-17 15:40] LABS: Anion Gap 8 (5-15); BUN 23 mg/dL (7-18); BUN/Creat Ratio 29.3 RATIO (10-20); Calcium,Total 9.7 mg/dL (8.5-10.1); Chloride 103 mmol/L (98-107); Cholesterol 203 mg/dL (200); Creatinine, Serum 0.78 mg/dL (0.55-1.02); EST Glomerular Filtration Rate 80 mL/min (>60); Est Glom Filt Rate - Afr Amer 97 mL/min (>60); Glucose 113 mg/dL (74-106); High Density Lipoprotein 49 mg/dL; Potassium 4.2 mmol/L (3.5-5.1); Sodium Level 139 mmol/L (136-145); Triglycerides 181 mg/dL; Very Low Density Lipoprotein 36 mg/dL (5-40)
== END ==
PROVIDERS: PCP Family Medicine; Referring Provider Family Medicine; Visit Provider Family Medicine
DX: I10 Essential (primary) hypertension (principal); R23.8 Other skin changes; E66.01 Morbid (severe) obesity due to excess calories
CPT/HCPCS: 36415; 80048; 80061; 82607; 82746; 84443; 85025

== ENCOUNTER 2020-09-11 11:39 | Outpatient (RCR) | payer MEDICAID, SELFPAY | END 2020-09-21 23:59 | LOC: NS 11:39 | PROVIDERS: PCP Family Medicine; Visit Provider Physician Assistant Surgical | DX: Z71.3 Dietary counseling and surveillance (principal); E66.9 Obesity, unspecified; Z68.42 Body mass index [BMI] 45.0-49.9, adult | CPT/HCPCS: 97803 ==

== ENCOUNTER 2020-10-16 13:30 | Outpatient (RCR) | payer MEDICAID, SELFPAY | END 2020-10-22 23:59 | LOC: NS 13:30 | PROVIDERS: PCP Family Medicine; Visit Provider Physician Assistant Surgical | DX: Z71.3 Dietary counseling and surveillance (principal); E66.9 Obesity, unspecified; Z68.42 Body mass index [BMI] 45.0-49.9, adult | CPT/HCPCS: 97803 ==

== ENCOUNTER → 2020-10-31 10:50 | Outpatient (CLI) | payer MEDICAID, SELFPAY ==
--- NOTE | 2020-10-31 10:52 | ECHOCS_ITS ---
Reason For Study: Dyspnea/SOB Procedure This was a 2D Doppler, Color Flow transthoracic echocardiogram. Technically difficult study due to patients body habitus. Contrast injection performed. Exam performed in department. Left Ventricle Normal LV size. Left ventricular systolic function is normal. The estimated ejection fraction is 65 %. No regional wall motion abnormalities noted. Right Ventricle Normal RV size. Normal systolic function. Atria Normal left atrium. Normal right atrium. Mitral Valve Normal mitral valve. Tricuspid Valve Normal tricuspid valve. Unable to estimate RV systolic pressure due to insufficient tricuspid regurgitant envelope. Unable to estimate RV systolic pressure due to inadequate jet, pulmonary artery pressure probably normal. Aortic Valve The aortic valve is not well visualized. Pulmonic Valve Normal pulmonic valve. Great Vessels Normal aortic root. The pulmonary artery is normal size. Pericardium/Pleural No pericardial effusion. Medication 22 gauge I.V. with prn adaptor inserted into right arm. Diluted definity 3ml given slow IV push to enhance endocardial definition. MMode/2D Measurements & Calculations LVIDd: 4.2 cm IVSd: 1.2 cm Ao root diam: 3.1 cm LVIDs: 3.1 cm LVPWd: 1.3 cm LA dimension: 3.4 cm FS: 25.0 % LAV(MOD-bp): 47.8 ml LA A4 area: 16.2 cm2 RA A4 area: 13.0 cm2 LAV(MOD-bp) Indexed: 24.0 ml/m2 LAV(MOD-sp2): 50.4 ml LAV(MOD-sp4): 44.8 ml Time Measurements MV dec time: 0.33 sec Doppler Measurements & Calculations MV E max morales: 67.5 cm/sec Lat Peak E' Morales: 8.5 cm/sec Med Peak E' Morales: 7.3 cm/sec MV A max morales: 94.4 cm/sec E/E' lat: 8.0 E/E' med: 9.3 MV E/A: 0.72 MV V2 max: 95.8 cm/sec MV P1/2t max morales: 77.6 cm/sec Ao V2 max: 195.8 cm/sec MV max P.7 mmHg MV P1/2t: 77.7 msec Ao max P.3 mmHg MV V2 mean: 54.7 cm/sec MV dec slope: 292.8 cm/sec2 MV mean P.4 mmHg MV V2 VTI: 21.3 cm MVA(P1/2t): 2.8 cm2 LV V1 max: 154.2 cm/sec PA V2 max: 126.2 cm/sec LV V1 max P.5 mmHg ECHO/Echo Complete W/ Contrast Interpretation Summary Normal LV size. Left ventricular systolic function is normal. The estimated ejection fraction is 65 %. Contrast injection was performed. The study was technically limited. Ordering Physician: Luciano Cavazos Referring Physician: Reny Damian M.D. Performed By: Harpreet Khoury RCS
== END ==
PROVIDERS: PCP Family Medicine; Referring Provider Internal Medicine Pulmonary Disease; Visit Provider Internal Medicine Pulmonary Disease
DX: R06.00 Dyspnea, unspecified (principal)
CPT/HCPCS: 93306; Q9957; A4216; C8929; J3490

== ENCOUNTER 2020-11-13 13:15 | Outpatient (RCR) | payer MEDICAID, SELFPAY | END 2020-11-21 23:59 | LOC: NS 13:15 | PROVIDERS: PCP Family Medicine; Visit Provider Physician Assistant Surgical | DX: Z71.3 Dietary counseling and surveillance (principal); E66.9 Obesity, unspecified; Z68.42 Body mass index [BMI] 45.0-49.9, adult | CPT/HCPCS: 97803 ==

== ENCOUNTER 2020-12-04 13:05 | Outpatient (RCR) | payer MEDICAID, SELFPAY | END 2020-12-22 23:59 | LOC: NS 13:05 | PROVIDERS: PCP Family Medicine; Visit Provider Physician Assistant Surgical | DX: Z71.3 Dietary counseling and surveillance (principal); E66.9 Obesity, unspecified; Z68.42 Body mass index [BMI] 45.0-49.9, adult | CPT/HCPCS: 97803 ==

== ENCOUNTER 2020-12-28 16:00 | Outpatient (RCR) | payer MEDICAID, SELFPAY ==
--- NOTE | 2020-07-11 14:21 | HP.PTEVAL ---
Patient's Visit Information TONEY RIGGINS is a 55 year old F referred to Physical Therapy by Dr. Stevie Garcia DPM with a diagnosis of Pain in L foot.. Date of Evaluation: 07/11/20 Physical Therapist: UJAN Saleh - Visit Plan Frequency: 2x /Week Duration: 4-6 Weeks Plan: 2X/ week for 4-6 weeks for AT for ankle AROM, stretching, increase weightbearing activities, gait training with HEP - Subjective Pt reports that her foot started to hurt several months back and her knees are bad and she did fall and she thought she might have stretched something but she has a bone spur and it is cutting into the achilles and causing calcification. SHe got a cortizone shot, exercises, shoes inserts and a boot to wear in bed at night to keep her foot stretched. She reports no improvement with the cortizone injection. The pain is uncomfortable all night long. Everytime she turns she will have pain in her knees. She reports that if she has to get up in the middle of the night or getting out of bed she can hardly walk cause of the pain. If she sit for a little bit and goes to get up she will have pain in her achilles (sit to stand pain and first few steps 8/10 pain. If barefoot her pain is unbarable to walk). The pain is enough that she might not be able to hold her weight because of the pain. Because of the knee and heel pain now her hip is starting to hurt. She wants to be active but this is stopping here. She can not go up and down stairs because of the pain in her knees and foot and has to take one step at a time and has a handrail but it is not that sturdy but needs something to get up the step. She is unable to get down the steps to do her laundry. She was told to do stretches at home including wall gastroc stretch and a few others that she can not remember. She will be seen for an eval for her knees (just got injections in Both knees) and wants to do AT for both her foot and her knees. - Pain L heel pain Pain Intensity (Out of 10): 4 Pain Intensity Range: 10 Comment: with walking barefoot - Objective sit to stand to gait: able to get up but hard to put L foot on the ground for the first few steps and then hobbles with short stride ( not even full foot length step length on B feet and definite decreased stance time on the L with gait. L ankle AROM: -2 degrees for DF and 45 degrees PF, INV 22 degrees, and EV 8 degrees. R ankle AROM: 0 degrees DF, 45 degrees PF, 23 degrees INV, 8 degrees EV. Palpable: tender over the L heel and at the achilles insertion on the L. Tender all the way up the achilles tendon into the muscle belly. No tenderness along the bottom of her foot with palation but she felt stretching along the bottom of the L foot. L ankle MMT: DF 4-/5, PF 4-/5, INV 4/5 and EV 4/5. R ankle MMT: DF, PF, INV, EV 5/5. - Goals Goal 1:: I HEP Goal Time Frame: 4-6 Weeks Goal 2:: Decrease L foot pain to 2/10 with gait and first few steps when getting up from a chair or out of bed. Goal Time Frame: 4-6 Weeks Goal 3:: Increase L ankle AROM to 5 degrees DF painfree Goal Time Frame: 4-6 Weeks Goal 4:: Increase L ankle strength by 1/2 muscle grade (at time of the eval: Goal Time Frame: 4-6 Weeks - Rehabilitation Potential Rehabilitation Potential: Good - Anticipated Interventions Patient/Client Instruction: Educate patient on: Condition, Plan of Care For the Purpose of:: To decrease pain, To decrease swelling/inflammation, To increase ROM, To improve nutrient delivery to tissue, To improve muscle performance and motor function, To improve ability to perform ADL's, To increase tolerance to activity/condition/position, To improve performance and independence with ADL's, To decrease level of supervision to perform tasks, To improve ability of physical actions for home/community/work/leisure, To improve gait and locomotor functions, To improve health of tissue, To decrease soft tissue restriction, To increase flexibility/ROM, To improve balance, To improve safety with gait Therapeutic Exercise to Include: Strength training, Balance training, Flexibilty training, Gait and locomotor training, Neuromotor development, In an aquatic setting, Passive ROM, Active ROM For the Purpose of:: To decrease pain, To decrease swelling/inflammation, To increase ROM, To improve nutrient delivery to tissue, To improve muscle performance and motor function, To improve ability to perform ADL's, To increase tolerance to activity/condition/position, To improve performance and independence with ADL's, To improve ability of physical actions for home/community/work/leisure, To improve gait and locomotor functions, To improve health of tissue, To decrease soft tissue restriction, To increase flexibility/ROM, To improve balance, To improve safety with gait Functional Training to Include: Gait training For the Purpose of:: To improve gait and locomotor functions, To improve safety with gait Manual Therapy Techniques to Include: Passive ROM For the Purpose of:: To increase ROM, To improve nutrient delivery to tissue, To decrease soft tissue restriction, To increase flexibility/ROM, To improve self management, To prevent re-injury Thank you for the opportunity to evaluate your patient. For Medicare and Medicare HMO plans, please review the plan of care and approve it. It will need to be FAXED BACK to us at [phone] for Medicare purposes. For Medicare only, by signing this I certify the plan of care. Please let me know if there are questions or concerns regarding this plan of care. Physician Signature: Date:
--- NOTE | 2020-09-26 12:30 | HP.PTREVAL ---
Dr. Stevie Garcia, DPTrang, It has been my pleasure to treat TONEY THOMPSON FRESHMILAGROS over the last 11 visits for Pain in L foot.. Please see the progress note below for an update on the physical therapy plan of care! Subjective: Pt has not done anything in the water since she re injured it. Her L foot pain is 8/10. She is supposed to be wearing a boot but can not. She goes back to her Dr Thursday for a follow up. She wants to resume PT exercises in the water and will get another order. Objective/Function: Unable to complete Rx today d/t Dr's new restrictions. Filling out (and submitting below) LEFS. Continuing with secondary chart for BLAT knees. Plan Plan: Pt will go back to and get additional orders and will call with DOC POC. *f/u with progression to I pool program. Has her own page. *f/u with new HEP soleus stretch. 2X/ week for 4-6 weeks for AT for ankle AROM, stretching, increase weightbearing activities, gait training with HEP Goals Goal 1:: I HEP Goal Time Frame: 4-6 Weeks Goal 2:: Decrease L foot pain to 2/10 with gait and first few steps when getting up from a chair or out of bed. Goal Time Frame: 4-6 Weeks Goal 3:: Increase L ankle AROM to 5 degrees DF painfree Goal Time Frame: 4-6 Weeks Goal 4:: Increase L ankle strength by 1/2 muscle grade (at time of the eval: Goal Time Frame: 4-6 Weeks Anticipated Interventions Patient/Client Instruction: Educate patient on: Condition, Plan of Care For the Purpose of:: To decrease pain, To decrease swelling/inflammation, To increase ROM, To improve nutrient delivery to tissue, To improve muscle performance and motor function, To improve ability to perform ADL's, To increase tolerance to activity/condition/position, To improve performance and independence with ADL's, To decrease level of supervision to perform tasks, To improve ability of physical actions for home/community/work/leisure, To improve gait and locomotor functions, To improve health of tissue, To decrease soft tissue restriction, To increase flexibility/ROM, To improve balance, To improve safety with gait Therapeutic Exercise to Include: Strength training, Balance training, Flexibilty training, Gait and locomotor training, Neuromotor development, In an aquatic setting, Passive ROM, Active ROM For the Purpose of:: To decrease pain, To decrease swelling/inflammation, To increase ROM, To improve nutrient delivery to tissue, To improve muscle performance and motor function, To improve ability to perform ADL's, To increase tolerance to activity/condition/position, To improve performance and independence with ADL's, To improve ability of physical actions for home/community/work/leisure, To improve gait and locomotor functions, To improve health of tissue, To decrease soft tissue restriction, To increase flexibility/ROM, To improve balance, To improve safety with gait Functional Training to Include: Gait training For the Purpose of:: To improve gait and locomotor functions, To improve safety with gait Manual Therapy Techniques to Include: Passive ROM For the Purpose of:: To increase ROM, To improve nutrient delivery to tissue, To decrease soft tissue restriction, To increase flexibility/ROM, To improve self management, To prevent re-injury Please do not hesitate to contact me at [phone] by phone or if you have questions or concerns regarding this new plan of care! Sincerely, Mercy Sheridan, MPT
--- NOTE | 2020-10-09 13:40 | HP.PTREVAL_ITS ---
Dr. Stevie Garcia, DPTrang, It has been my pleasure to treat TONEY RIGGINS over the last 12 visits for Pain in L foot.. Please see the progress note below for an update on the physical therapy plan of care! Subjective: Pt reports that her achilles tendon is shredded. They want her to do surgery but she can not be down for [address] Stevie Garcia for the foot and he wants her to do a combination of land and water exercises. Pt gets weird sensation in her calf and heel and leg. Her toes are curling up from it. She has a weird pain with walking and has to baby it in order to walk. They want her to wear a boot but she can not wear the boot. She knows when she did it and she was sick to her stomach and felt her tendon snap. L ankle pain 6/10 Objective/Function: L Ankle AROM: DF -1 degree from neutral and 24 degrees PF. PROM of the L ankle info DF increases her pain. Eversion AROM on the L ankle increases her pain. Gait: walks with decrease stance time on the L LE Plan Plan: 1X/ week on land and 1X/ week on the land for 4 weeks for L ankle AROM/light PROM, stretching, increase weightbearing activities, strengthening, gait training with HEP... Goals Goal 1:: I HEP Goal Time Frame: 4-6 Weeks Goal 2:: Decrease L foot pain to 2/10 with gait and first few steps when getting up from a chair or out of bed. Goal Time Frame: 4-6 Weeks Goal Progress: Progressing Goal 3:: Increase L ankle AROM to 5 degrees DF painfree Goal Time Frame: 4-6 Weeks Goal Progress: Progressing Goal 4:: Increase L ankle strength by 1/2 muscle grade (at time of the eval: Goal Time Frame: 4-6 Weeks Anticipated Interventions Patient/Client Instruction: Educate patient on: Condition, Plan of Care For the Purpose of:: To decrease pain, To decrease swelling/inflammation, To increase ROM, To improve nutrient delivery to tissue, To improve muscle performance and motor function, To improve ability to perform ADL's, To increase tolerance to activity/condition/position, To improve performance and independence with ADL's, To decrease level of supervision to perform tasks, To improve ability of physical actions for home/community/work/leisure, To improve gait and locomotor functions, To improve health of tissue, To decrease soft tissue restriction, To increase flexibility/ROM, To improve balance, To improve safety with gait Therapeutic Exercise to Include: Strength training, Balance training, Flexibilty training, Gait and locomotor training, Neuromotor development, In an aquatic setting, Passive ROM, Active ROM For the Purpose of:: To decrease pain, To decrease swelling/inflammation, To increase ROM, To improve nutrient delivery to tissue, To improve muscle performance and motor function, To improve ability to perform ADL's, To increase tolerance to activity/condition/position, To improve performance and independence with ADL's, To improve ability of physical actions for home/com munity/work/leisure, To improve gait and locomotor functions, To improve health of tissue, To decrease soft tissue restriction, To increase flexibility/ROM, To improve balance, To improve safety with gait Functional Training to Include: Gait training For the Purpose of:: To improve gait and locomotor functions, To improve safety with gait Manual Therapy Techniques to Include: Passive ROM For the Purpose of:: To increase ROM, To improve nutrient delivery to tissue, To decrease soft tissue restriction, To increase flexibility/ROM, To improve self management, To prevent re-injury Please do not hesitate to contact me at [phone] by phone or if you have questions or concerns regarding this new plan of care! Sincerely, Mercy Sheridan, MPT
--- NOTE | 2021-01-01 13:04 | HP.PTDCSUM ---
It has been my pleasure to treat TONEY THOMPSON FRESHMILAGROS referred by Dr. Stevie Garcia DPM, with the diagnosis of Pain in L foot. for a total of 25 visit(s). Discharge Date: 01/01/21 Please see the following information for a summary of their discharge status. Subjective: The L foot tendon was hurting alot yesterday. L heel pain Pain Intensity (Out of 10): 6 BLAT knees Pain Intensity (Out of 10): 8 RLE Pain Intensity (Out of 10): 5 % Improvement: 20 Objective/Function: Arriving 3 mins late. Pt filling out LEFS and submitted below. Cues throughout balance tasks to avoid using UEs on rails and/or pushing against viscosity of water. Instead, encouraged LE stabilization, even if, at times, needing contralateral LE for stabilization. Occasional c/o's increasing L ankle pain with cues to rest and/or reduce WBing prn. Goal 1:: I HEP Goal Progress: Goal Met Goal 2:: Decrease L foot pain to 2/10 with gait and first few steps when getting up from a chair or out of bed. Goal Progress: Not Progressing Goal 3:: Increase L ankle AROM to 5 degrees DF painfree Goal Progress: Progressing Goal 4:: Increase L ankle strength by 1/2 muscle grade (at time of the eval: Goal Progress: Progressing Plan: *d/c to I pool program with [employer] membership and pool page. *Please let [facility] know when these are complete in order to DC* Discharge Comments: DC PT If there are questions or concerns regarding this patient's physical therapy, please feel free to call me at [phone]. Thank you for the referral of this patient. Sincerely, Mercy Sheridan, MPT Balance/Gait/Functional tests - Balance/Special Test Scores Lower Extremity Functional Score: 12
== END 2020-12-28 19:00 | disposition home or self-care (01) ==
LOC: PT 16:00
PROVIDERS: PCP Family Medicine; Referring Provider Podiatrist Foot & Ankle Surgery; Visit Provider Podiatrist Foot & Ankle Surgery
DX: M79.672 Pain in left foot (principal); Z71.3 Dietary counseling and surveillance; E66.9 Obesity, unspecified; Z68.42 Body mass index [BMI] 45.0-49.9, adult; S86.012D Strain of left Achilles tendon, subsequent encounter; M76.62 Achilles tendinitis, left leg; M67.02 Short Achilles tendon (acquired), left ankle; M17.0 Bilateral primary osteoarthritis of knee
CPT/HCPCS: 97110; 97113; 97161; 97162; 97164; 97530; 97803

== ENCOUNTER → 2021-01-09 | Outpatient (CLI) | payer MEDICAID, SELFPAY | END | disposition home or self-care (01) | PROVIDERS: Visit Provider Family Medicine | DX: Z20.822 Contact with and (suspected) exposure to COVID-19 (principal) | CPT/HCPCS: 87635; U0005; U0003 ==

== ENCOUNTER 2021-01-15 13:58 | Outpatient (RCR) | payer MEDICAID, SELFPAY | END 2021-01-15 23:59 | disposition home or self-care (01) | LOC: NS 13:58 | PROVIDERS: Visit Provider Physician Assistant Surgical | DX: Z71.3 Dietary counseling and surveillance (principal); E66.9 Obesity, unspecified; Z68.42 Body mass index [BMI] 45.0-49.9, adult | CPT/HCPCS: 97803 ==

== ENCOUNTER 2021-01-25 14:30 | Outpatient (RCR) | payer MEDICAID, SELFPAY ==
--- NOTE | 2021-01-25 16:22 | HP.PTEVAL2 ---
Patient's Visit Information TONEY RIGGINS is a 55 year old F referred to Physical Therapy by Dr. Reny Damian MD with a diagnosis of . Date of Evaluation: Physical Therapist: Axel Hernandez PT, Cert MDT, OCS - Anticipated Interventions Thank you for the opportunity to evaluate your patient. For Medicare and Medicare HMO plans, please review the plan of care and approve it. It will need to be FAXED BACK to us at [phone] for Medicare purposes. For Medicare only, by signing this I certify the plan of care. Please let me know if there are questions or concerns regarding this plan of care. Physician Signature: Date:
--- NOTE | 2021-01-25 16:24 | HP.PTEVAL_ITS ---
Patient's Visit Information TONEY RIGGINS is a 55 year old F referred to Physical Therapy by Dr. Reny Damian MD with a diagnosis of LEFT FOOT PAIN ,MORBID OBESITY. Date of Evaluation: 01/25/21 Physical Therapist: Axel Hernandez PT, Cert MDT, OCS - Visit Plan Plan: PATIENT WILL BENEFIT FROM SCOOTER (POV) DUE TO BILATERAL KNEE PAIN CAUSES DEFICITS WITH UNABLE TO STAND 1 MIN AND AMBULATE <150fT WITHOUT REST /SITTING,POOR ENDUARNACE O2, SATS 94% ,HR 113 BEATS /PER MINUTE,DECREASE STRENGTH BUE 4-/5 EXCEPT SHOULDERS 3+/5,QUADS/HIP FLEXION 3+/5 ,HAMTINGS 4- /5,BUE 4-/4 EXCEPT SHOULDER 3+/5 WITH RIGHT SHOULDER PAIN THUS WILL BENIFIT FROM SCOOTER MAXIMIZE FUNCTIONAL INDEPENDANCE.PATIENT LIMIATION CAN NOT BE RESOLVED BY WALKER DUE TO DISTANCE PATIENT CAN WALK OR STAND 1 MIN AND DECREASE ENDURANCE ,PATIENT UNABLE TO USE MANUAL W/C WITH WEAKNESS AND RIGHT PAIN WITH POOR ENDURANCE. PATIENT HAS MENTAL AND PHSYICAL CAPABILITIES TO OPERATE SOOTER AND TRANSFER SAFELY - Subjective This 55 y/o female presents to physical therapy with scooter evaluation. Patient multiple complexity issues bilateral knee DJD which patient needs TKA ,torn left Achilles tendon, HNP lumbar /back , mild COPD . Patient has difficulty with stand ~ 1min due to pain has chair ,patient requires sitting with walking due to pain and SOB . Patient has difficulty with ADLS cooking to standing, unable to clean like vacuuming. Patient walks ~ 100 ft but needed to sit with pain and SOB. States difficulty getting in/out of tub. Patient has no recent falls except 1 month ago mechanical. Patient denies paresthesia /tingling . Patient has right shoulder propel manual w/c . Patient unable todo basement steps so daughter has to assist. Patient will benefit from scooter (POV) to maintain independent function. SOCAIL : single. VOCATION: Disability - Pain Bilateral Knee Pain Intensity (Out of 10): 8 Pain Intensity Range: 10 - Objective POSTURE: mild forward posture, hips/knees flexed. NEURO: denies paresthesia/tingling. PALPATION: tender knees. GAIT: reciprocal pattern antalgic gait with hips/knees flexed ~150 needed to sit. BALANCE: fair+. AROM: 5-100 supine knee flexion ,hip flexion 90 degrees ,abduction 50 degrees. MMT: quads 3+/5,hamstrings 4-/5,hip abduction 3+/5 ,ankle 4/5. BUE AROM: shoulder ~110. MMT: Grossly 4-/5 except shoulders 3+/5. O2 SATS 94% AFTER 150 FT. HR 113 BEATS /MIN - Goals Goal 1:: RECOMMEND SCOOTER TO MAINTAIN FUNCTIONAL INDEPENDANCE Goal Time Frame: 1 VISIST - Rehabilitation Potential Physical Therapy Diagnosis: PATIENT WILL BENEFIT FROM SCOOTER (POV) DUE TO BILATERAL KNEE PAIN CAUSES DEFICITS WITH UNABLE TO STAND 1 MIN AND AMBULATE <150fT WITHOUT REST /SITTING,POOR ENDUARNACE O2, SATS 94% ,HR 113 BEATS /PER MINUTE,DECREASE STRENGTH BUE 4-/5 EXCEPT SHOULDERS 3+/5,QUADS/HIP FLEXION 3+/5 ,HAMTINGS 4-/5,BUE 4-/4 EXCEPT SHOULDER 3+/5 WITH RIGHT SHOULDER PAIN. THUS WILL BENIFIT FROM SCOOTER MAXIMIZE FUNCTIONAL INDEPENDANCE. Rehabilitation Potential: Fair - Anticipated Interventions Patient/Client Instruction: Educate patient on: Condition, Plan of Care For the Purpose of:: Other Other: GABEOOTER Thank you for the opportunity to evaluate your patient. For Medicare and Medicare HMO plans, please review the plan of care and approve it. It will need to be FAXED BACK to us at [phone] for Medicare purposes. For Medicare only, by signing this I certify the plan of care. Please let me know if there are questions or concerns regarding this plan of care. Physician Signature: Date:
== END 2021-01-25 19:00 | disposition home or self-care (01) ==
LOC: PT 14:30
PROVIDERS: PCP Family Medicine; Referring Provider Family Medicine; Visit Provider Family Medicine
DX: S86.012D Strain of left Achilles tendon, subsequent encounter (principal); X58.XXXD Exposure to other specified factors, subsequent encounter; M76.62 Achilles tendinitis, left leg; M67.02 Short Achilles tendon (acquired), left ankle
CPT/HCPCS: 97162

== ENCOUNTER 2021-03-22 16:40 | Emergency (ER) | payer MEDICAID, SELFPAY ==
[2021-03-22 16:41] VITALS: BP 154/71; PULSE 93; RESP 16; TEMP 36.1; O2SAT 99; BMI 51.8
--- NOTE | 2021-03-22 16:50 | RAD_ITS ---
STUDY: X-RAY - LEFT WRIST REASON FOR EXAM: Female, 55 years old. FALL, PAIN TECHNIQUE: 4 view(s) of the wrist were obtained. COMPARISON: None. FINDINGS: Normal visualized distal radius and ulna. Normal radiocarpal articulation. Normal distal radioulnar articulation. Normal carpal bones. Normal carpal articulations. Normal carpometacarpal articulation of the thumb. Normal second through fifth carpometacarpal articulations. Normal visualized metacarpal bones. The soft tissue structures are unremarkable. RAD/Wrist min 3 Views IMPRESSION: Normal x-ray examination of the wrist. Electronically Signed: Colby Dooley MD at 17:07 EDT , Service support ,
--- NOTE | 2021-03-22 17:25 | EX.ED.UPPERE ---
HPI History of Present Illness Chief Complaint: Upper Extremity Injury Informant: patient Occured/Mechanism Mechanism/Context: Yes same level fall Onset/Context/Timing Onset: Yesterday Current Severity: Mild Maximum Severity: Moderate Narrative Narrative: Patient present secondary to left wrist pain after a fall. Patient states that she was standing in the roadway yesterday when her knees gave out on her and she fell onto her hands and knees. She states that she has bad knees and falls not infrequently. Patient states today she had persistent left wrist pain and wanted to have this checked. She is right-hand dominant. Did not strike her head. [facility] Medical History GERD (gastroesophageal reflux disease) Hypertension Hypothyroidism Home Medications Ibuprofen [Motrin] 800 mg PO TID PRN PRN 10/04/15 [History Last Taken 08/30/18] dextroamphetamine-amphetamine [Adderall 20 mg Tablet] 20 mg PO DAILY PRN 10/04/15 [History Last Taken 08/30/18] diazepam 5 mg PO DAILY PRN 10/04/15 [History Last Taken 08/30/18] duloxetine 30 mg PO DAILY 10/04/15 [History Last Taken 08/30/18] duloxetine 60 mg PO DAILY 10/04/15 [History Last Taken 08/30/18] levothyroxine 175 mcg PO DAILY 10/04/15 [History Last Taken 08/30/18] lisinopril 20 mg PO DAILY 10/04/15 [History Last Taken 08/30/18] omeprazole 20 mg PO DAILY 10/04/15 [History Last Taken 08/30/18] glucos sul [id number] 1 ea PO BID 09/01/19 [History Last Taken Unknown] oxycodone-acetaminophen 1 tab PO Q6H PRN PRN 09/01/19 [History Last Taken Unknown] Allergy/AdvReac Type Severity Reaction Status Date / Time No Known Allergies Allergy Verified 08/31/18 13:36 Social History Smoking Status: Former smoker ROS ROS ED Constitutional Constitutional ED: Denies chills or fever(s) Eyes Eyes: Denies change in vision ENT ENT ED: Denies sore throat Cardiovascular Cardiovascular: Denies chest pain Respiratory/Chest Respiratory/Chest: Denies cough or dyspnea Gastrointestinal Gastrointestinal: Denies abdominal pain, diarrhea, nausea or vomiting Genitourinary Genitourinary ED: Denies dysuria Musculoskeletal Musculoskeletal: Reports other Details: Left wrist pain ; Denies back pain Integumentary Denies Abrasions or rash Neurologic Neurologic: Denies headache(s), paresthesias or weakness Allergic/Immunologic Allergic/Immunologic ED: Denies urticaria EXAM Physical Exam Const Vital Signs: 03/22/21 16:41 Temperature 96.9 F L Temperature Source Temporal Pulse Rate 93 Respiratory Rate 16 Blood Pressure 154/71 H Blood Pressure Mean 98 Pulse Ox 99 Oxygen Delivery Method Room Air Positive well nourished and well developed General Appearance ED: well developed HEENT Reports normocephalic and head/scalp atraumatic Eyes PERRL and EOMs intact bilaterally Neck supple Chest Wall inspection of chest normal and palpation of chest normal Resp normal respiratory effort and clear to auscultation bilaterally Cardio regular rate and regular rhythm GI normal to inspection, nondistended, normoactive bowel sounds Palpation: soft Extremity Extremity Narrative: Mild tenderness location left wrist along the navicular region. No obvious edema. Full range of motion with good cap refill and sensation distally. No tenderness of the elbow or shoulder. Neuro oriented x3 and no sensory deficits noted Sensorium / Orientation: alert Motor Exam: strength 5/5 throughout Psych mental status grossly normal Skin no rashes or lesions noted MDM MDM MDM Narrative Medical decision making narrative: Left wrist x-rays obtained per nursing protocol. Radiography Diagnostic Testing: Clinical Impression(s) from Imaging Studies Wrist X-Ray 03/22/21 16:50 IMPRESSION: Normal x-ray examination of the wrist. Electronically Signed: Colby Dooley MD at 17:07 EDT , Service support , Treatment and Re-Evaluation Comments:: Left wrist x-rays per my interpretation reveal no obvious fracture. Radiologist interpretation is reviewed. Test results discussed with the patient. She will be placed in a Velcro wrist splint. Instructed to come out of this multiple times a day to work on range of motion. If still having pain in 1 week she should have a repeat x-ray to ensure no evidence of navicular fracture. Patient voices understanding and agreement. Discharge Plan Triage Chief Complaint: Upper Extremity Injury ED Provider: Emelina Gloria Dx/Rx/DC Orders Clinical Impression: Left wrist sprain Instructions: ED Wrist Sprain Prescriptions: No Action levothyroxine 175 MCG tablet 175 mcg PO DAILY RF: 0 lisinopril 20 MG tablet 20 mg PO DAILY RF: 0 dextroamphetamine-amphetamine [Adderall] 20 MG tablet 20 mg PO DAILY PRN (Reason: CONCENTRATION) RF: 0 omeprazole 20 MG capsule 20 mg PO DAILY RF: 0 diazepam 5 MG tablet 5 mg PO DAILY PRN (Reason: Anxiety) RF: 0 duloxetine 30 MG capsule 30 mg PO DAILY RF: 0 duloxetine 60 MG capsule 60 mg PO DAILY RF: 0 Ibuprofen [Motrin] 800 MG tablet 800 mg PO TID PRN PRN (Reason: Pain) RF: 0 oxycodone-acetaminophen 1 EACH tablet 1 tab PO Q6H PRN PRN (Reason: Pain) RF: 0 glucos sul [id number]-C-Mn 1 EACH capsule 1 ea PO BID RF: 0 Primary Care Provider: Reny Damian Referrals: Reny Damian MD [Primary Care Provider] - 1 Week if not improving Disposition Disposition: Home, Self Care
== END 2021-03-22 17:55 | disposition home or self-care (01) ==
LOC: ED 17:49
PROVIDERS: Emergency Provider Emergency Medicine; PCP Family Medicine
DX: S63.502A Unspecified sprain of left wrist, initial encounter (principal); K21.9 Gastro-esophageal reflux disease without esophagitis; I10 Essential (primary) hypertension; E03.9 Hypothyroidism, unspecified; Z79.899 Other long term (current) drug therapy; Z87.891 Personal history of nicotine dependence; W18.30XA Fall on same level, unspecified, initial encounter; Y93.89 Activity, other specified; Y92.410 Unspecified street and highway as the place of occurrence of the external cause; Y99.8 Other external cause status
CPT/HCPCS: 73110; 99283

== ENCOUNTER 2021-07-04 13:14 | Outpatient (CLI) | payer MEDICAID, SELFPAY ==
--- NOTE | 2021-07-04 13:17 | CT_ITS ---
STUDY: LOW DOSE CT LUNG CANCER SCREENING REASON FOR EXAM: Female, 56 years old. TOBACCO USE. Patient smoked 1 pack per day for 35 years. Covid. RADIATION DOSAGE (If Supplied By Facility): CTDIvol = ( 4.02 ) mGy, DLP = ( 127.88 ) mGycm TECHNIQUE: No contrast was administered. Low dose technique was utilized (average mAS-38 and kVp 120). 1.25 mm axial source images with a slice interval of 1.25-mm were reconstructed in lung windows. 2.5 mm axial source images with a slice interval of 2.5-mm were reconstructed in lung windows. 5.0 mm axial source images with a slice interval of 5.0-mm were reconstructed in soft tissue windows. Nodule measured using lung windows on PACS and/or independent workstation with automated measurement of minimum and maximum diameter. Nodule measurement reported as average diameter rounded to the nearest whole number. Growth is defined as an increase ins size of greater than 1.5 mm. COMPARISON: Comparison is made with prior study dated 07/04/2020. NODULES: No suspicious nodules are seen. Emphysema: Linear scar with mild increased markings in the lingular segment of the left upper lobe. Minimal increased markings in the anterior medial aspect of the right middle lobe suggestive of scarring. Endobronchial lesion: None Aorta: Mild atherosclerotic plaque formation of the aortic arch. Coronary arteries: Mild coronary artery calcification. Heart: Unremarkable Pulmonary artery: Unremarkable Mediastinal nodes: Small benign-appearing mediastinal lymph nodes. Other chest and abdominal findings: CT/Low Dose CT Lung Screening IMPRESSION: Lung-RADS category 2 - Continue annual screening with LDCT in 12 months. IMPORTANT NOTES FOR USE: ACR Lung-RADS Version 1.1 Assessment Categories Release Date: 2018 Category: Coded 0-4 bases on nodule(s) with highest degree of suspicion. Negative screen is defined as categories 1 and 2; a positive screen is defined as categories 3 and 4. Category 3 and 4A nodules that are unchanged on interval CT should be coded as category 2, and individuals returned to screening in 12 months. Category 4X: Category 3 or 4 nodules with additional imaging findings that increase the suspicion of lung cancer, such as spiculation, GGN that doubles in size in 1 year, enlarged lymph notes, etc. Category Modifiers: S (significant finding unrelated to lung cancer) Electronically Signed: Naren Yoo MD at 18:34 EST ,
== END 2021-07-04 23:59 | disposition home or self-care (01) ==
LOC: CT 13:16
PROVIDERS: PCP Family Medicine; Referring Provider Internal Medicine Pulmonary Disease; Visit Provider Internal Medicine Pulmonary Disease
DX: Z87.891 Personal history of nicotine dependence (principal)
CPT/HCPCS: 71271

== ENCOUNTER → 2021-09-19 | Outpatient (CLI) | payer MEDICAID, SELFPAY ==
--- NOTE | 2021-09-19 13:05 | BI_ITS ---
MAMMOGRAPHY - BILATERAL SCREENING REASON FOR EXAM: Female, 56 years old. Routine annual screening examination. PERTINENT HISTORY: Non-contributory. TECHNIQUE: Digital bilateral breast russell (3D mammographic acquisition) in the CC and MLO projections. 2-D mediolateral oblique (MLO) and craniocaudad (CC) views of both breasts were obtained. CAD: Full Field Digital Mammography with Computer Added Detection was performed. COMPARISON: Comparison is made with prior study dated 03/04/2019 and 06/25/2016. FINDINGS: Breast Composition: The breasts are extremely dense, which lowers the sensitivity of mammography. There are no dominant masses or suspicious calcifications. No other significant abnormalities are identified. There has been no significant change since the prior study. BI/SCRN MAMM (CAD)W/RUSSELL BILAT IMPRESSION: Stable bilateral screening mammogram. Yearly follow-up mammogram recommended. (A) ASSESSMENT CATEGORY: BIRADS Category 1: Negative. A letter regarding these results will be sent to the patient by the facility within 30 days. Approximately 10% of breast cancers are not detected by mammography. A normal mammogram should not delay biopsy of a clinically suspicious abnormality. [id number] Electronically Signed: Naren Yoo MD at 14:12 EDT ,
== END | disposition home or self-care (01) ==
LOC: OPBI 13:03
PROVIDERS: PCP Family Medicine; Visit Provider Obstetrics & Gynecology
DX: Z12.31 Encounter for screening mammogram for malignant neoplasm of breast (principal)
CPT/HCPCS: 77063; 77067

== ENCOUNTER → 2022-02-06 | Outpatient (CLI) | payer MEDICARE, MEDICAID, SELFPAY ==
--- NOTE | 2022-02-06 13:59 | CT_ITS ---
STUDY: CT Chest W/O Contrast Injection 02/06/2022 3:35 PM REASON FOR EXAM: Female, 56 years old. PERSONAL HX OF NICOTINE DEPENDENCE pneumonia Individualized dose optimization techniques were used for this CT. TECHNIQUE: Transaxial imaging was performed withoutIV contrast material. COMPARISON: 07/04/2021 FINDINGS: There are degenerative changes of the shoulders. There is no pneumothorax. There is no demonstrated pleural abnormality. Stable bullous formation in the lateral aspect of the lingular segment of the left upper lobe with focal scarring. There are calcifications of the coronary arteries. Normal mediastinum. Normal hilar regions. Normal pulmonary arteries. There is atherosclerotic calcification of the aortic arch with tortuosity and elongation of the aortic arch and descending thoracic aorta. There are multi-level degenerative changes of the thoracic spine. There are no acute findings of the upper abdomen. CT/Chest without Contrast IMPRESSION: There are no acute findings. There are calcifications of the coronary arteries. Electronically Signed: Anand Pratt MD at 15:37 EDT ,
== END | disposition home or self-care (01) ==
PROVIDERS: PCP Family Medicine; Visit Provider Internal Medicine Pulmonary Disease
DX: Z87.891 Personal history of nicotine dependence (principal)
CPT/HCPCS: 71250

== ENCOUNTER 2022-02-21 11:30 | Outpatient (RCR) | payer MEDICAID, MEDICARE, SELFPAY ==
--- NOTE | 2021-10-31 15:47 | HP.PTEVAL_ITS ---
Patient's Visit Information TONEY RIGGINS is a 56 year old F referred to Physical Therapy by Deon Siu PA-C with a diagnosis of Bilateral Knee OA. Date of Evaluation: 10/31/21 Physical Therapist: Michelle Sosa DPT - Visit Plan Frequency: 2x /Week Duration: 4 Weeks Plan: Aquatic PT- focus on LE and core strength/stabilization- functional mobility - Subjective She reports that both knees are bad and knee replaced. She has been having injections but they are to deteriorated and has cysts. They want her to do water therapy to see if she can get stronger and have some pain management. She needs to have them replaced but she needs to lose weight. She has a scooter and a walker- for when she goes long distances. No AD in her home but walks slowly- she sits to perform ADL's. She then has pain when she stands up. Worst: 8/10 Agg: being up on them, getting dressed/tying shoes. Eases: sitting Best: 0/10. When she sits its instant relief. Pain in the medial joint line worse than lateral. She does have some radiating pain in the hips when ambulating- she feels that its from compensation. Left use to be worse but they are about the same now. Sleep: not disturbed. X-rays- reports severe OA. Work: on disabilit y-from her knees, back, neck. PMHx/Meds: see list scanned in chart. - Objective Posture: FH, RS- given verbal and tactile cues she is able to correct but not maintain- pt is overweight. Gait: antalgic- wide SAMARIA- unable to ambulate >150 feet- valgus at the knees Palpation: tender along medial joint line and distal patella. ROM: Left: 0-115 degrees bilateral with pain at end ranges SLS: weight shift and reports pain. HR/TR: able with UE A. Strength: Core: poor, Hip: 4/5 throughout, Knee: 4/5 with pain, Ankle: 5/5. Flex: HS: mod, Quad: severe, Gastroc: mod. - Balance/Special Test Scores Lower Extremity Functional Score: 16 - Goals Goal 1:: Patient will be I with HEP and progression Goal Time Frame: 4-6 Weeks Goal 2:: Patient will ambulate >300 feet with LRD Goal Time Frame: 4-6 Weeks Goal 3:: Patient will asc/desc 8 recip with 2 HR Goal Time Frame: 4-6 Weeks Goal 4:: Patient will report 80% improvement Goal Time Frame: 4-6 Weeks - Rehabilitation Potential Physical Therapy Diagnosis: Patient presents with hypermobility- she has decreased LE and core strength/stabilization, LE ROM, proprioception and muscular endurance leading to abnormal gait and increased pain and fear with ADL's. Rehabilitation Potential: Fair - Anticipated Interventions Patient/Client Instruction: Educate patient on: Benefits of Fitness Program Therapeutic Exercise to Include: Strength training, Endurance training, Balance training, Coordination, Agility training, Body mechanics, Postural training, Flexibilty training, Gait and locomotor training, Neuromotor development, In an aquatic setting, Passive ROM, Active ROM, Dynamic Lumbar Stabilization, Scapular Strength/Stabilization For the Purpose of:: To improve muscle performance and motor function Thank you for the opportunity to evaluate your patient. For Medicare and Medicare HMO plans, please review the plan of care and approve it. It will need to be FAXED BACK to us at [phone] for Medicare purposes. For Medicare only, by signing this I certify the plan of care. Please let me know if there are questions or concerns regarding this plan of care. Physician Signature: Date:
--- NOTE | 2021-12-17 13:54 | HP.PTREVAL ---
Deon Siu PA-C, It has been my pleasure to treat TONEY RIGGINS over the last 9 visits for Bilateral Knee OA. Please see the progress note below for an update on the physical therapy plan of care! Subjective: Patient reports that she was getting better- it was helping a lot. She hasn't been in a pool for a week and does feel that she is backsliding a little bit. She was moving better, walking better and getting down the stairs better. She does know that she will need bilateral knee replacements. Objective/Function: Posture: FH, RS- given verbal and tactile cues she is able to correct but not maintain- pt is overweight. Gait: antalgic- wide SAMARIA- unable to ambulate >300 feet- valgus at the knees. Stairs: can do them but avoids them. Palpation: tender along medial joint line and distal patella. ROM: Left: 0-115 degrees bilateral with pain at end ranges SLS: weight shift and reports pain. HR/TR: able with UE A. Strength: Core: fair, Hip: 4+/5 throughout, Knee: 4+/5 with pain, Ankle: 5/5. Flex: HS: mod, Quad: severe, Gastroc: mod. Plan Plan: 12/17/21: Continue- aquatic PT towards I HEP. Aquatic PT- focus on LE and core strength/stabilization- functional mobility Balance/Gait/Functional tests - Balance/Special Test Scores Lower Extremity Functional Score: 17 Goals Goal 1:: Patient will be I with HEP and progression Goal Time Frame: 4-6 Weeks Goal Progress: Progressing Goal 2:: Patient will ambulate >300 feet with LRD Goal Time Frame: 4-6 Weeks Goal Progress: Progressing Goal 3:: Patient will asc/desc 8 recip with 2 HR Goal Time Frame: 4-6 Weeks Goal Progress: Progressing Goal 4:: Patient will report 80% improvement Goal Time Frame: 4-6 Weeks Goal Progress: Progressing Anticipated Interventions Patient/Client Instruction: Educate patient on: Benefits of Fitness Program Therapeutic Exercise to Include: Strength training, Endurance training, Balance training, Coordination, Agility training, Body mechanics, Postural training, Flexibilty training, Gait and locomotor training, Neuromotor development, In an aquatic setting, Passive ROM, Active ROM, Dynamic Lumbar Stabilization, Scapular Strength/Stabilization For the Purpose of:: To improve muscle performance and motor function Please do not hesitate to contact me at [phone] by phone or if you have questions or concerns regarding this new plan of care! Sincerely, GENESIS OttoT
--- NOTE | 2022-02-21 12:02 | HP.PTDCSUM ---
It has been my pleasure to treat TONEY RIGGINS referred by Deon Siu PA-C, with the diagnosis of Bilateral Knee OA for a total of 20 visit(s). Discharge Date: 02/21/22 Please see the following information for a summary of their discharge status. Subjective: PATIENT REPORTS HER SYMPTOMS ARE STAYING ABOUT THE SAME BUT SHE HAS HAD IMPROVEMTN IN HER DAILY FUNCTION OVER-ALL SINCE STARTING PT. PATIENT REPORTS SHE IS STARTING SILVER SNEAKERS TOMORROW. REPORTS SHE IS READY TO CONTINUE HER POOL PROGRAM INDEP'LY. STATES THAT WITH HER NEW INSURANCE SHE WILL HAVE A $30 CO-PAY FOR PT AND SHE CAN'T AFFORD THAT. STATES SHE IS STILL HAVING A LOT OF PAIN ON STEPS AND TAKES THEM ONE AT A TIME. bilat knees Pain Intensity (Out of 10): 7 R knee Pain Intensity (Out of 10): 8 L knee Pain Intensity (Out of 10): 7 % Improvement: 40 Objective/Function: PATIENT WAS SEEN TODAY FOR RE-ASSESSMENT OF PROGRESS TOWARD THE SET PT GOALS AND THE NEED FOR FURTHER PHYSICAL THERAPY VS READINESS FOR DISCHARGE. PATIENT DOES NOT APPEAR TO BE CONTINUEING TO PROGRESS WITH PT AND IS APPROPRIATE FOR DISCHARGE TO INDEP EX. SHE IS AGREEABLE. UPON EXAM TODAY SHE DEMONSTRATES INDEP GAIT WITHOUT AD >300 FEET BUT SHE HAS DECREASED KNEE FLEX STEVEN DURING SWING PHASE OF GAIT AND EXTERNALLY ROTATES HER RIGHT LE. SHE CAN PARTIALLY CORRECT HER RLE ER WITH CUEING. Stairs: can do them but avoids them. Palpation: tender along medial joint line and distal patella. ROM: Left knee AROM in supine with a heel slide = minus 18 deg to 111 deg flexion. Right knee AROM in supine with a heel slide = minus 10 deg to 109 deg flexion. SLS: weight shift and reports pain. HR/TR: able with UE A. Strength: Core: fair, Hip: 4+/5 throughout, Knee: 4+/5 with pain, Ankle: 5/5. Flex: HS: mod, Quad: severe, Gastroc: mod. Goal 1:: Patient will be I with HEP and progression Goal Progress: Goal Met Goal 2:: Patient will ambulate >300 feet with LRD Goal Progress: Goal Met Goal 3:: Patient will asc/desc 8 recip with 2 HR Goal Progress: Not Progressing Goal 4:: Patient will report 80% improvement Goal Progress: Not Progressing Plan: D/C TO INDEP POOL PROGRAM. PATIENT IS AGREEABLE. If there are questions or concerns regarding this patient's physical therapy, please feel free to call me at [phone]. Thank you for the referral of this patient. Sincerely, Kasia Reis, PT, Cert MDT Balance/Gait/Functional tests - Balance/Special Test Scores Lower Extremity Functional Score: 26
== END 2022-02-21 12:13 | disposition home or self-care (01) ==
LOC: PT 11:30
PROVIDERS: PCP Family Medicine; Referring Provider Physician Assistant Surgical; Visit Provider Physician Assistant Surgical
DX: M17.0 Bilateral primary osteoarthritis of knee (principal)
CPT/HCPCS: 97110; 97113; 97162; 97164

== ENCOUNTER → 2022-02-21 | Outpatient (CLI) | payer MEDICARE, MEDICAID, SELFPAY ==
[2022-02-21 17:31] LABS: Absolute Lymphocyte Count 2.31 X10^3/uL (0.83-4.51); Absolute Neutrophil Count 4.8 X10^3/uL (2.0-7.7); Basophil# 0.08 X10^3/uL; Eosinophil# 0.32 X10^3/uL; Hematocrit 44.3 % (37-47); Hemoglobin 14.1 g/dL (12.0-15.0); Lymphocyte # 2.31 X10^3/ul (0.83-4.51); Lymphocyte % 28.6 % (19-41); Mean Corp Hgb Conc 31.8 g/dL (32-36); Mean Corpuscular Hgb 28.3 pg (27.0-32.0); Mean Corpuscular Volume 88.8 fL (81-99); Mean Platelet Vol. 10.5 fl (6.2-12.0); Monocyte# 0.57 X10^3/uL; Monocyte% 7.1 % (0-10); NRBC Flagged by Analyzer 0 % (0-5); Neutrophil # 4.77 X10^3/uL (2.7-7.7); Neutrophil % 58.9 % (47-70); Platelet Count 310 K/mm3 (150-450); RBC Distribution Width CV 13.8 % (11.6-14.6); RBC Distribution Width SD 44.3 fl (35.1-43.9); Red Blood Count 4.99 M/mm3 (4.2-5.4); White Blood Count 8.1 K/mm3 (4.4-11.0)
[2022-02-21 18:08] LABS: Anion Gap 10 (5-15); BUN 21 mg/dL (7-18); BUN/Creat Ratio 28.8 RATIO (10-20); Calcium,Total 9.7 mg/dL (8.5-10.1); Chloride 104 mmol/L (98-107); Cholesterol 204 mg/dL (200); Creatinine, Serum 0.73 mg/dL (0.55-1.02); EST Glomerular Filtration Rate 87 mL/min (>60); Est Glom Filt Rate - Afr Amer 105 mL/min (>60); Ferritin 73 ng/mL (8-252); Glucose 116 mg/dL (74-106); High Density Lipoprotein 51 mg/dL; Iron 54 ug/dL (50-170); Sodium Level 138 mmol/L (136-145); T4 Total, Thyroxin 14.6 ug/dL (4.8-13.9); Thyroid Stim Hormone (TSH) 0.84 uIU/mL (0.358-3.74); Triglycerides 175 mg/dL; Very Low Density Lipoprotein 35 mg/dL (5-40)
== END | disposition home or self-care (01) ==
LOC: MFPLAB 14:38
PROVIDERS: PCP Family Medicine; Referring Provider Family Medicine; Visit Provider Family Medicine
DX: I10 Essential (primary) hypertension (principal); D64.9 Anemia, unspecified; E03.9 Hypothyroidism, unspecified; M17.0 Bilateral primary osteoarthritis of knee
CPT/HCPCS: 36415; 80048; 80061; 82728; 83540; 84436; 84443; 85025; 97164

== ENCOUNTER 2022-08-07 14:35 | Outpatient (CLI) | payer MEDICARE, SELFPAY ==
[2022-08-07 18:01] LABS: Mean Corp Hgb Conc 31.1 g/dL (32-36); Mean Corpuscular Hgb 27.7 pg (27.0-32.0); Mean Corpuscular Volume 88.9 fL (81-99); Mean Platelet Vol. 10.4 fl (6.2-12.0); Platelet Count 313 K/mm3 (150-450); RBC Distribution Width CV 13.3 % (11.6-14.6); RBC Distribution Width SD 43.8 fl (35.1-43.9); Red Blood Count 5.06 M/mm3 (4.2-5.4); White Blood Count 9.3 K/mm3 (4.4-11.0)
[2022-08-07 18:19] LABS: Vitamin B12 373 pg/mL (211-911)
[2022-08-07 18:20] LABS: Hemoglobin A1c 6.6 % (3.8-5.6)
[2022-08-07 18:30] LABS: AST(SGOT) 20 U/L (15-37); Alanine Aminotransfer ALT/SGPT 28 U/L (13-56); Albumin, Serum 3.6 g/dL (3.2-5.0); Alkaline Phosphatase 101 U/L (45-117); Anion Gap 9 (5-15); BUN 21 mg/dL (7-18); Calcium,Total 9.4 mg/dL (8.5-10.1); Chloride 103 mmol/L (98-107); Creatinine, Serum 0.72 mg/dL (0.55-1.02); EST Glomerular Filtration Rate 88 mL/min (>60); Est Glom Filt Rate - Afr Amer 106 mL/min (>60); Ferritin 63 ng/mL (8-252); Globulin 3.7 g/dL (2.2-4.2); Glucose 148 mg/dL (74-106); Iron 72 ug/dL (50-170); Iron Binding Capacity,Total 381 ug/dL (250-450); Potassium 3.9 mmol/L (3.5-5.1); Protein, Total 7.3 g/dL (6.4-8.2); Sodium Level 137 mmol/L (136-145); Thyroid Stim Hormone (TSH) 1.45 uIU/mL (0.358-3.74)
[2022-08-20 16:07] LABS: Anti-Thyroglobulin AB 24.6 IU/mL (0.0-0.9); Thyroglobulin RIA < 2.0 ng/mL (.)
== END 2022-08-07 23:59 | disposition home or self-care (01) ==
PROVIDERS: PCP Family Medicine; Visit Provider Nurse Practitioner Family
DX: E03.9 Hypothyroidism, unspecified (principal); D64.9 Anemia, unspecified; I10 Essential (primary) hypertension; R20.0 Anesthesia of skin; R20.2 Paresthesia of skin; R73.09 Other abnormal glucose
CPT/HCPCS: 36415; 80053; 82607; 82728; 83036; 83540; 83550; 84432; 84439; 84443; 85027; 86800

== ENCOUNTER 2022-09-18 12:50 | Outpatient (RCR) | payer MEDICARE, SELFPAY | END 2022-09-21 23:59 | LOC: DC 12:50 | PROVIDERS: PCP Family Medicine; Referring Provider Family Medicine; Visit Provider Family Medicine | DX: E11.9 Type 2 diabetes mellitus without complications (principal) | CPT/HCPCS: G0108 ==

== ENCOUNTER 2022-10-13 10:30 | Outpatient (RCR) | payer MEDICARE, SELFPAY | END 2022-10-22 23:59 | LOC: DC 10:30 | PROVIDERS: PCP Family Medicine; Referring Provider Family Medicine; Visit Provider Family Medicine | DX: E11.9 Type 2 diabetes mellitus without complications (principal) | CPT/HCPCS: 97802; G0108; G0109 ==

== ENCOUNTER 2022-11-17 11:30 | Outpatient (RCR) | payer MEDICARE, SELFPAY | END 2022-11-21 23:59 | LOC: DC 11:30 | PROVIDERS: PCP Family Medicine; Referring Provider Family Medicine; Visit Provider Family Medicine | DX: E11.9 Type 2 diabetes mellitus without complications (principal) | CPT/HCPCS: 97803 ==

== ENCOUNTER 2022-12-10 12:55 | Outpatient (RCR) | payer MEDICARE, SELFPAY | END 2022-12-22 23:59 | LOC: DC 12:55 | PROVIDERS: PCP Family Medicine; Referring Provider Family Medicine; Visit Provider Family Medicine | DX: E11.9 Type 2 diabetes mellitus without complications (principal) | CPT/HCPCS: 97803 ==

== ENCOUNTER → 2022-12-30 | Outpatient (CLI) | payer MEDICARE, SELFPAY ==
[2022-12-30 16:17] LABS: AST(SGOT) 19 U/L (15-37); Alanine Aminotransfer ALT/SGPT 26 U/L (13-56); Albumin, Serum 3.4 g/dL (3.2-5.0); Alkaline Phosphatase 105 U/L (45-117); Cholesterol 205 mg/dL (200); Globulin 4.2 g/dL (2.2-4.2); High Density Lipoprotein 47 mg/dL; Protein, Total 7.6 g/dL (6.4-8.2); Triglycerides 171 mg/dL; Very Low Density Lipoprotein 34 mg/dL (5-40)
[2022-12-30 16:32] LABS: Microalbumin,Random Urine 6.2 mg/L (NO RANGE EST.); Microalbumin:Creatinine Ratio 10.7 mg/g CRE (<30 mg/g CRE)
== END | disposition home or self-care (01) ==
LOC: MFPLAB 11:59
PROVIDERS: PCP Family Medicine; Visit Provider Family Medicine
DX: E11.9 Type 2 diabetes mellitus without complications (principal)
CPT/HCPCS: 36415; 80061; 80076; 82043; 82570

== ENCOUNTER 2023-01-01 13:07 | Outpatient (RCR) | payer MEDICARE, SELFPAY | END 2023-01-22 23:59 | LOC: DC 13:07 | PROVIDERS: PCP Family Medicine; Referring Provider Family Medicine; Visit Provider Family Medicine | DX: E11.9 Type 2 diabetes mellitus without complications (principal) | CPT/HCPCS: 97803 ==

== ENCOUNTER 2023-02-11 14:05 | Outpatient (RCR) | payer MEDICARE, SELFPAY | END 2023-02-21 23:59 | LOC: DC 14:05 | PROVIDERS: PCP Family Medicine; Referring Provider Family Medicine; Visit Provider Family Medicine | DX: E11.9 Type 2 diabetes mellitus without complications (principal) | CPT/HCPCS: 97803 ==

== ENCOUNTER 2023-03-11 13:05 | Outpatient (RCR) | payer MEDICARE, SELFPAY | END 2023-03-24 23:59 | LOC: DC 13:05 | PROVIDERS: PCP Family Medicine; Referring Provider Family Medicine; Visit Provider Family Medicine | DX: E11.9 Type 2 diabetes mellitus without complications (principal) | CPT/HCPCS: 97803 ==

== ENCOUNTER 2023-04-23 12:30 | Outpatient (RCR) | payer MEDICARE, SELFPAY | END 2023-04-23 23:59 | LOC: DC 12:30 | PROVIDERS: PCP Family Medicine; Referring Provider Family Medicine; Visit Provider Family Medicine | DX: E11.9 Type 2 diabetes mellitus without complications (principal) | CPT/HCPCS: 97803 ==

== ENCOUNTER → 2023-11-10 | Outpatient (CLI) | payer MEDICARE, SELFPAY ==
[2023-11-10 18:03] LABS: AST(SGOT) 25 U/L (15-37); Alanine Aminotransfer ALT/SGPT 32 U/L (13-56); Albumin, Serum 3.4 g/dL (3.2-5.0); Alkaline Phosphatase 106 U/L (45-117); Bilirubin, Direct 0.13 mg/dL (0.00-0.30); Cholesterol 179 mg/dL (200); Globulin 3.8 g/dL (2.2-4.2); High Density Lipoprotein 49 mg/dL; Protein, Total 7.2 g/dL (6.4-8.2); Triglycerides 184 mg/dL; Very Low Density Lipoprotein 37 mg/dL (5-40)
== END | disposition home or self-care (01) ==
LOC: MFPLAB 14:44
PROVIDERS: PCP Family Medicine; Visit Provider Family Medicine
DX: E11.9 Type 2 diabetes mellitus without complications (principal)
CPT/HCPCS: 36415; 80061; 80076

== ENCOUNTER → 2024-03-30 | Outpatient (CLI) | payer MEDICARE, MEDICAID, SELFPAY ==
--- NOTE | 2024-03-30 17:55 | CT_ITS ---
STUDY: LOW DOSE CT LUNG CANCER SCREENING REASON FOR EXAM: Female, 58 years old. SMOKER- 1PPD RADIATION DOSAGE (If Supplied By Facility): CTDIvol = ( 4.02 ) mGy, DLP = ( 130.89 ) mGycm TECHNIQUE: No contrast was administered. Low dose technique was utilized (average mAS-38 and kVp 120). 1.25 mm axial source images with a slice interval of 1.25-mm were reconstructed in lung windows. 2.5 mm axial source images with a slice interval of 2.5-mm were reconstructed in lung windows. 5.0 mm axial source images with a slice interval of 5.0-mm were reconstructed in soft tissue windows. COMPARISON: 07/04/2021 Emphysema: Mild emphysema. 5 cm bulla in the lateral aspect of the lingula. No noncalcified nodule or mass. Endobronchial lesion: None Aorta: No thoracic aortic aneurysm. CORONARY ARTERIES: Coronary artery calcification is seen. Heart: No cardiomegaly. Pulmonary artery: Normal Mediastinal nodes: Normal Other chest and abdominal findings: Diffuse degenerative disc disease of the thoracic spine. CT/Low Dose CT Lung Screening IMPRESSION: Lung-RADS category 1 - Continue annual screening with LDCT in 12 months. IMPORTANT NOTES FOR USE: ACR Lung-RADS Version 1.1 Assessment Categories Release Date: 2018 Category: Coded 0-4 bases on nodule(s) with highest degree of suspicion. Negative screen is defined as categories 1 and 2; a positive screen is defined as categories 3 and 4. Category 3 and 4A nodules that are unchanged on interval CT should be coded as category 2, and individuals returned to screening in 12 months. Category 4X: Category 3 or 4 nodules with additional imaging findings that increase the suspicion of lung cancer, such as spiculation, GGN that doubles in size in 1 year, enlarged lymph notes, etc. Category Modifiers: S (significant finding unrelated to lung cancer) Electronically Signed: Leon Foley MD at 9:34 EST ,
== END | disposition home or self-care (01) ==
LOC: CT 17:53
PROVIDERS: PCP Family Medicine; Referring Provider Internal Medicine Pulmonary Disease; Visit Provider Internal Medicine Pulmonary Disease
DX: Z87.891 Personal history of nicotine dependence (principal)
CPT/HCPCS: 71271

== ENCOUNTER 2025-01-23 20:15 | Emergency (ER) | payer MEDICARE, SELFPAY ==
[2025-01-23 20:16] VITALS: BP 165/83; PULSE 95; RESP 18; TEMP 36.4; O2SAT 96
--- NOTE | 2025-01-23 20:40 | RAD_ITS ---
PROCEDURE: LEFT KNEE 4 OR MORE VIEWS 01/23/2025 REASON FOR EXAM: PAIN TECHNIQUE: Procedure Code: RADKN Modality: DX Procedure: KNEE 4 OR MORE VIEWS Laterality: Left COMPARISON: 09/01/2019 FINDINGS: No acute fracture or dislocation. Advanced tricompartmental degenerative arthrosis characterized by joint space narrowing, slight medial subluxation of the femoral condyles on the tibial plateaus, subchondral sclerosis, and prominent marginal osteophytosis. No significant joint effusion. No marked soft tissue swelling or unusual mineralization. RAD/Knee 4 or More Views IMPRESSION: Advanced tricompartmental osteoarthritis, progressed since prior exam. Reading Location: [id number]
--- NOTE | 2025-01-23 21:38 | EX.ED.DYSGE1 ---
HPI History of Present Illness Chief Complaint: Lower Extremity Injury Informant: patient Onset/Context/Timing Onset: Days Current Severity: Moderate Maximum Severity: Moderate Narrative Narrative: 59-year-old female has chronic degenerative arthritis of her left knee. Denies any fall or injury or trauma but has had a flareup of her left knee pain for several days. Worse with walking. No fever no redness. She has had joint injections before none recently she was told after having so many injections to not have anymore because her arthritis was just getting worse. Her orthopedic physicians have talked to her about having knee replacements. She also states that she had a TV dinner the other night she thinks it may have been bad she started having nausea and vomiting 1 episode of diarrhea. Denies any abdominal pain no fever. No dysuria. Prior similar symptoms: Yes Recent Illness/Hospitalization: No [facility] Medical History Breast cancer in situ Hypertension GERD (gastroesophageal reflux disease) Hypothyroidism Home Medications ?Medication ?Instructions ?Recorded ?Last Taken ?Type Ibuprofen [Motrin] 800 mg PO TID PRN PRN Pain 10/04/15 08/30/18 History diazepam 5 mg tablet 5 mg PO DAILY PRN Anxiety 10/04/15 08/30/18 History duloxetine 60 mg capsule,delayed 60 mg PO BID 10/04/15 08/30/18 History release levothyroxine 175 mcg tablet 175 mcg PO DAILY 10/04/15 08/30/18 History lisinopril 20 mg tablet 20 mg PO DAILY 10/04/15 08/30/18 History omeprazole 20 mg capsule,delayed 20 mg PO DAILY 10/04/15 08/30/18 History release albuterol sulfate 2.5 mg/3 mL 2.5 mg continuous nebulization 01/23/25 Unknown History (0.083 %) solution for nebulization 4X/DAY PRN PRN shortness of breath or wheezing ammonium lactate 12 % lotion 1 applic topical BID 01/23/25 Unknown History anastrozole 1 mg tablet 1 mg PO DAILY 01/23/25 Unknown History clobetasol 0.05 % topical cream 1 applic topical BID 01/23/25 Unknown History cyclobenzaprine 10 mg tablet 10 mg PO BID PRN PRN muscle spasm 01/23/25 Unknown History dupilumab 300 mg/2 mL subcutaneous See Rx Instructions subcut .COMPLEX 01/23/25 Unknown History pen injector (DupixNaviscan) lidocaine-prilocaine 2.5 %-2.5 % 1 applic topical BID PRN PRN pain 01/23/25 Unknown History topical cream ondansetron 4 mg disintegrating 4 mg PO Q6H PRN nausea and 01/23/25 Unknown Rx tablet vomiting #10 tabs oxycodone-acetaminophen 10 mg-325 1 tab PO 4X/DAY PRN PRN pain 01/23/25 Unknown History mg tablet prednisolone acetate 1 % eye 1 drp LEFT EYE DAILY 01/23/25 Unknown History drops,suspension rosuvastatin 20 mg tablet 20 mg PO QHS 01/23/25 Unknown History semaglutide 0.25 mg or 0.5 mg (2 0.5 mg subcut QWEEK 01/23/25 Unknown History mg/3 mL) subcutaneous pen injector (Ozempic) triamcinolone acetonide 0.1 % 1 applic topical BID 01/23/25 Unknown History topical cream Allergy/AdvReac Type Severity Reaction Status Date / Time No Known Allergies Allergy Verified 01/23/25 20:17 Social History Smoking Status: Former smoker ROS ROS ED ROS Narrative Acute on chronic knee pain. Nausea vomiting diarrhea. Constitutional Constitutional ED: Denies chills or fever(s) Eyes Eyes: Denies blurry vision ENT ENT ED: Denies ear pain Cardiovascular Cardiovascular: Denies chest pain Respiratory/Chest Respiratory/Chest: Denies cough or dyspnea Gastrointestinal Gastrointestinal: Reports diarrhea, nausea and vomiting; Denies abdominal pain, constipation or melena Genitourinary Genitourinary ED: Denies dysuria or hematuria Musculoskeletal Musculoskeletal: Denies arthralgias, back pain, myalgias or neck pain Integumentary Denies abscess, Abrasions or rash Neurologic Neurologic: Denies headache(s) Psychiatric Psychiatric: Denies anxiety or depression Endocrine Endocrinology: Denies cold intolerance or heat intolerance Hematologic/Lymphatic Hematologic/Lymphatic: Reports none Allergic/Immunologic Allergic/Immunologic ED: Denies mouth swelling, tongue swelling or urticaria EXAM Physical Exam Narrative Exam Narrative: Well-appearing 59-year-old female vital signs stable afebrile no acute distress. H EENT exam pupils round react to light. Moist mucous membranes. Neck nontender no JVD. Lungs clear to auscultation bilaterally. Heart regular rhythm rate about 90 no murmur. Chest wall ribs nontender. Abdomen soft, nontender, nondistended, normal bowel sounds without peritoneal signs. No localizing tenderness. No hernia no mass. No obstruction. Right upper and lower quadrant unremarkable. Moving all 4 extremities. She is tenderness to her left knee is not red or swollen. There is no septic joint. She has significant arthritic crunching when she tries to flex and extend her knee. Hip and ankle are nontender. She has dorsi and plantarflexion intact. Neurologically she is awake and alert. Answer questions following commands. Back nontender. Const Vital Signs: 01/23/25 20:16 Temperature 97.6 F L Temperature Source Temporal Pulse Rate 95 Respiratory Rate 18 Blood Pressure 165/83 H Blood Pressure Mean 110 Pulse Ox 96 Oxygen Delivery Method Room Air Positive well nourished and well developed; Negative for cachectic, contractures or unkempt General Appearance ED: well developed; Negative for unkempt, cachectic, contractures, cyanotic, diaphoretic or pallor Nutritional Appearance: Negative for cachectic HEENT Reports moist mucous membranes Negative for trauma or tenderness Eyes PERRL and EOMs intact bilaterally Neck no lymphadenopathy, supple and no JVD Chest Wall inspection of chest normal and palpation of chest normal Resp normal respiratory effort and clear to auscultation bilaterally Cardio regular rate and regular rhythm GI normal to inspection, nondistended, normoactive bowel sounds, non-tender, non-distended and no masses Auscultation: normoactive bowel sounds Palpation: soft; Negative for tender, guarding or rebound tenderness present Back/Spine General Back: Negative for CVA tenderness or other Cervical Spine: Negative for cervical spine tenderness Thoracic Spine / Upper Back: Negative for thoracic spinal tenderness or paraspinal muscle tenderness Lumbar Spine / Lower Back: Negative for lumbar spinal tenderness Extremity Negative for normal to inspection Extremity Narrative: Crunchy left knee with flexion extension. Currently no effusion. No septic joint. No redness. No warmth. General Extremety ED: Yes tenderness; Negative for edema General Extremity: Negative for edema Neuro oriented x3 and CN's II-XII intact bilaterally Sensorium / Orientation: alert Motor Exam: strength 5/5 throughout Psych mental status grossly normal Appearance: Negative for unkempt Skin no rashes or lesions noted, no wounds and skin turgor normal General Skin Exam: elasticity normal; Negative for jaundice or pallor Lesions: No lesion noted Rashes: No rashes noted Trauma: Negative for abrasion MDM MDM MDM Narrative Medical decision making narrative: 59-year-old female acute on chronic knee pain for degenerative arthritis x-ray was obtained by nursing in triage protocol shows severe arthritis. Patient is not supposed to get knee injections anymore so that is not an option. To use Tylenol Motrin at home ice. She is also had some nausea and vomiting over the last 24 hours her exam is benign. She does want some for the nausea she will be given a dose of oral Zofran. Her abdomen is completely benign she does not need any imaging or labs. Patient is comfortable with the plan. She has outpatient follow-up scheduled with orthopedics. History & Record Review Discussion w/independent historian: Patient Additional record(s) reviewed:: Prior inpatient record, Prior outpatient record, Prior ED visit and Prior labs Radiography Diagnostic Testing: Clinical Impression(s) from Imaging Studies Knee X-Ray 01/23/25 20:40 IMPRESSION: Advanced tricompartmental osteoarthritis, progressed since prior exam. Reading Location: [facility] Left knee x-ray 4 views interpreted by myself and the radiologist shows severe degenerative arthritis. Loss of joint space. Consistent with arthritis. No fracture. No significant effusion. Discharge Plan Triage Chief Complaint: Lower Extremity Injury ED Provider: Meir Julien Dx/Rx/DC Orders Clinical Impression: Nausea & vomiting, Chronic knee pain, Degenerative arthritis Instructions: ED Chronic Pain, ED Vomiting (Adult) Prescriptions: New ondansetron 4 mg tablet,disintegrating 4 mg PO Q6H PRN (Reason: nausea and vomiting) Qty: 10 0RF No Action levothyroxine 175 MCG tablet 175 mcg PO DAILY lisinopril 20 MG tablet 20 mg PO DAILY omeprazole 20 MG capsule 20 mg PO DAILY diazepam 5 MG tablet 5 mg PO DAILY PRN (Reason: Anxiety) duloxetine 60 MG capsule 60 mg PO BID Ibuprofen [Motrin] 800 MG tablet 800 mg PO TID PRN PRN (Reason: Pain) cyclobenzaprine 10 mg tablet 10 mg PO BID PRN PRN (Reason: muscle spasm) lidocaine-prilocaine 2.5-2.5 % cream 1 applic topical BID PRN PRN (Reason: pain) oxycodone-acetaminophen 10-325 mg tablet 1 tab PO 4X/DAY PRN PRN (Reason: pain) Dupixent Pen 300 mg/2 mL pen injector See Rx Instructions SUBCUT .COMPLEX Patient Comments: [NO ORIGINAL SIG] Rx Instructions: 0.5 ml subcutaneously; every 2 weeks anastrozole 1 mg tablet 1 mg PO DAILY ammonium lactate 12 % lotion 1 applic topical BID albuterol sulfate 2.5 mg /3 mL (0.083 %) solution for nebulization 2.5 mg continuous nebulization 4X/DAY PRN PRN (Reason: shortness of breath or wheezing) prednisolone acetate 1 % drops,suspension 1 drp LEFT EYE DAILY clobetasol 0.05 % cream 1 applic topical BID triamcinolone acetonide 0.1 % cream 1 applic topical BID rosuvastatin 20 mg tablet 20 mg PO QHS Ozempic 0.25 mg or 0.5 mg (2 mg/3 mL) pen injector 0.5 mg subcut QWEEK Primary Care Provider: Paul Wyatt Referrals: Paul Wyatt MD [Primary Care Provider] - 3-5 Days if not improving Activity Restrictions/Additional Instructions: Ice to your knee to decrease pain and swelling. Motrin for pain and swelling of your knee and Tylenol. Zofran as needed for nausea. You may swallow it or let it dissolve under your tongue. Follow-up with your doctor if not improving or return if worse. Follow-up with orthopedics for your chronic knee pain and talk to them about it in the replacement. Print Language: American Disposition Disposition: Home, Self Care
[2025-01-23 22:27] VITALS: BP 148/62; PULSE 90; RESP 18; TEMP 36.6; O2SAT 97
== END 2025-01-23 22:29 | disposition home or self-care (01) ==
PROVIDERS: Emergency Provider Emergency Medicine; PCP Family Medicine; Visit Provider Emergency Medicine
DX: R11.2 Nausea with vomiting, unspecified (principal); M17.12 Unilateral primary osteoarthritis, left knee; M25.562 Pain in left knee; G89.29 Other chronic pain; I10 Essential (primary) hypertension; E03.9 Hypothyroidism, unspecified; K21.9 Gastro-esophageal reflux disease without esophagitis; Z79.51 Long term (current) use of inhaled steroids; Z79.899 Other long term (current) drug therapy; Z87.891 Personal history of nicotine dependence
CPT/HCPCS: 73564; 99282

== ENCOUNTER → 2025-03-03 | Outpatient (CLI) | payer MEDICARE, MEDICAID, SELFPAY ==
--- NOTE | 2025-03-03 12:56 | ART_ITS ---
Reason For Study Reason For Study: Claudication Procedure A bilateral lower extremity continuous wave Doppler with analog waveform analysis and ankle brachial indexes. Left Segmental Pressures Left brachial= 168mmHg. Left posterior tibial artery = 156mmHg. Left dorsalis pedis artery = 154mmHg. Left digit = 123 mmHg. The left dorsalis pedis waveforms are triphasic. The left posterior tibial artery waveforms are triphasic. Right Segmental Pressures Right brachial= 158mmHg. Right posterior tibial artery = 169mmHg. Right dorsalis pedis artery = 158mmHg. Right digit = 102 mmHg. The right dorsalis pedis waveforms are triphasic. The right posterior tibial artery waveforms are triphasic. Indices The right ankle brachial index by the dorsalis pedis is 0.94. The right ankle brachial index by the posterior tibial artery is 1.01. The right digital-brachial index is 0.61. The left ankle brachial index by the dorsalis pedis is 0.92. The left ankle brachial index by the posterior tibial artery is 0.93. The left digital-brachial index is 0.73. VL/Ankle Brachial Index Interpretation Summary Right SAMLA 1.01, normal. Doppler/PVR waveforms of the right leg normal at rest. TBI diminished, pedal/digit disease vs spasm. Left SALMA 0.93, mild arterial insufficiency. Doppler/PVR waveforms of the left l eg normal at rest. Ordering Physician: Paul Wyatt Referring Physician: PAUL WYATT MD Performed By: LAURA GROSSMAN T
--- NOTE | 2025-03-03 12:56 | ART_ITS ---
Reason For Study Reason For Study: Claudication Procedure A bilateral lower extremity continuous wave Doppler with analog waveform analysis and ankle brachial indexes. Left Segmental Pressures Left brachial= 168mmHg. Left posterior tibial artery = 156mmHg. Left dorsalis pedis artery = 154mmHg. Left digit = 123 mmHg. The left dorsalis pedis waveforms are triphasic. The left posterior tibial artery waveforms are triphasic. Right Segmental Pressures Right brachial= 158mmHg. Right posterior tibial artery = 169mmHg. Right dorsalis pedis artery = 158mmHg. Right digit = 102 mmHg. The right dorsalis pedis waveforms are triphasic. The right posterior tibial artery waveforms are triphasic. Indices The right ankle brachial index by the dorsalis pedis is 0.94. The right ankle brachial index by the posterior tibial artery is 1.01. The right digital-brachial index is 0.61. The left ankle brachial index by the dorsalis pedis is 0.92. The left ankle brachial index by the posterior tibial artery is 0.93. The left digital-brachial index is 0.73. VL/Ankle Brachial Index Interpretation Summary Right SALMA 1.01, normal. Doppler/PVR waveforms of the right leg normal at rest. TBI diminished, pedal/digit disease vs spasm. Left SALMA 0.93, mild arterial insufficiency. Doppler/PVR waveforms of the left l eg normal at rest. Ordering Physician: Paul Wyatt Referring Physician: PAUL WYATT MD Performed By: LAURA GRSOSMAN T
== END | disposition home or self-care (01) ==
LOC: CVS 12:56
PROVIDERS: PCP Family Medicine; Referring Provider Family Medicine; Visit Provider Family Medicine
DX: J43.9 Emphysema, unspecified (principal); I73.9 Peripheral vascular disease, unspecified
CPT/HCPCS: 93922

== ENCOUNTER → 2025-03-17 | Outpatient (CLI) | payer MEDICARE, MEDICAID, SELFPAY ==
--- NOTE | 2025-03-17 12:52 | STEWCON_ITS ---
Reason For Study Reason For Study: ASHD Stress Results Protocol: Stress Echocardiogram Jaspal Protocol Maximum Predicted HR: 159 bpm Target HR: 135 bpm % Maximum Predicted HR: 79 % DurationHeart Rate Stage (mm:ss) (bpm) BP Comment Baseline 91 149/76Patient denies chest pain. Stage 1 3:00 125 188/94Patient complains of dyspnea and fatigue. Denies chest pain. Stage 2 0:06 126 / Patient unable to walk any father. Dyspnea and fatigue. Denies chest pain. Recovery 93 136/80Patient denies chest pain or dyspnea. Stress Duration: 3:06 mm:ss Maximum Stress HR: 126 bpm Baseline Echocardiogram Findings Stress Echo Wall motion Data Resting WM Intermediate WM Stress WM ECHO/Stress Test Echo W/Contrast Interpretation Summary Exercise stress echocardiogram. 59-year-old lady with a history of atherosclerotic cardiovascular disease. Rest ing EKG demonstrates normal sinus rhythm with a rate of 92 bpm resting blood pressure is 149/76 mmHg. The patient exerci sed according to the regular Jaspal protocol for total duration of 3 minutes the maximum heart rate attained was 1 and 30 bpm which was 81% of maximum predicted heart rate maximum workload was 4.9 metabolic equivalents. At rest th ere were no ST or T wave changes noted suggest ischemia at peak exercise nonspecific ST changes were noted we did not meet the criteria for ischemia. The peak blood pressure was 188/94 mmHg which is a good blood pressure response to exerc ise the patient complained of dyspnea and fatigue necessitating termination of the test. Stress echocardiogram. The stress echocardiogram was performed with Definity en hanjudiment. The resting echocardiogram demonstrated preserved ejection fraction of 60% and with exercise there was thi ckening of all mac reduction of the ventricular cavity size peaking of ejection fraction of 65 to 70%. No wall uri on abnormalities were noted. Conclusion: Stress test with no EKG criteria for ischemia at a low workload. Normal resting and stress echocardiographic images. Moderate functional aerobic impairment. Ordering Physician: Paul Wyatt Referring Physician: Yoselin, Chalon Performed By: Harpreet Khoury, BELEM
== END | disposition home or self-care (01) ==
LOC: CVS 12:51
PROVIDERS: PCP Family Medicine; Referring Provider Family Medicine; Visit Provider Family Medicine
DX: J43.9 Emphysema, unspecified (principal); I73.9 Peripheral vascular disease, unspecified; I25.10 Atherosclerotic heart disease of native coronary artery without angina pectoris
CPT/HCPCS: 93017; 93350; Q9957; A4216; C8928

== ENCOUNTER → 2025-04-03 | Outpatient (CLI) | payer MEDICARE, MEDICAID, SELFPAY ==
--- NOTE | 2025-04-03 13:06 | CT_ITS ---
PROCEDURE: LOW DOSE CT LUNG SCREENING 04/03/2025 REASON FOR EXAM: PERSONAL HISTORY OF NICOTINE DEPENDENCE TECHNIQUE: Procedure Code: [id number] Modality: CT Procedure: LOW DOSE CT LUNG SCREENING Coronal and Sagittal reconstruction series were provided. One or more dose reduction techniques were used (e.g., Automated exposure control, adjustment of the mA and/or kV according to patient size, use of iterative reconstruction technique). REFERENCE LINK: [facility] Lung-RADS RADIATION DOSE SUMMARY: CTDlvol: 3.18 mGy DLP: 109.6 mGycm COMPARISON: None FINDINGS: PULMONARY NODULES: (Only nodules >3mm are reported) Nodules described below are on series to unless otherwise specified. Pulmonary Nodules: No new suspicious pulmonary nodules Hardware:N/a Lymph Nodes:Unremarkable Heart and Vasculature:Normal heart size Coronary Artery Calcifications: Absent Lungs and Airways: Mild emphysematous changes are present. Pleura:Unremarkable Upper Abdomen:Unremarkable Bones:Degenerative changes of the thoracic spine. CT/Low Dose CT Lung Screening IMPRESSION: No new suspicious pulmonary nodules. Coronary artery calcification (CAC) is is absent Lung-RADS Category: 1 NEGATIVE. RECOMMEND 12-MONTH SCREENING LDCT. Other Significant Findings: N/a Reading Location: [id number]
== END | disposition home or self-care (01) ==
LOC: CT 13:04
PROVIDERS: PCP Family Medicine; Referring Provider Internal Medicine Pulmonary Disease; Visit Provider Internal Medicine Pulmonary Disease
DX: Z87.891 Personal history of nicotine dependence (principal)
CPT/HCPCS: 71271